=== PATIENT | female | born 1945 | race Caucasian/White ===

== ENCOUNTER 2024-02-10 07:57 | Outpatient (OUT) | payer MEDICARE, SELFPAY ==
--- NOTE | 2024-02-10 08:35 | XR_ITS ---
The [address] [address] Patient Name: JIM MURPHY MRN: [id number] date: 1945 Sex: F Assigned Patient Location: LAB Current Patient Location: LAB Accession/Order Number: [id number] Exam Date: 02/10/2024 08:30 Report Date: 02/10/2024 08:55 At the request of: ALEJANDRO QUEZADA Procedure: XR shoulder RT min 2V PROCEDURE: XR shoulder RT min 2V COMPARISON: None. HISTORY: Chronic Right Shoulder Pain M25.11 FINDINGS: BONES:No acute fracture or dislocation. Mild glenohumeral and acromioclavicular joint osteoarthropathy with marginal osteophyte formation. 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 No visible soft tissue swelling. EFFUSION:None visible. OTHER: Negative. XR/XR shoulder RT min 2V IMPRESSION: Mild glenohumeral and acromioclavicular joint osteoarthritis Electronically authenticated by: PURA ARTEAGA Date: 02/10/2024 08:55
[2024-02-10 08:49] LABS: Basophils Absolute Auto 0.1 10^3/uL (0.0-0.1); Basophils Percent Auto 1.4 % (0.2-2.0); Eosinophils Absolute Auto 0.2 10^3/uL (0.0-0.7); Eosinophils Percent Auto 3.4 % (0.9-7.0); Hematocrit 36.1 % (36.0-48.0); Immature Granulocytes Abs Auto 0.01 10^3/uL (0.00-0.03); Immature Granulocytes Pct Auto 0.2 % (0.0-0.5); Lymphocytes Absolute Auto 1.5 10^3/uL (1.2-3.8); Lymphocytes Percent Auto 22.7 % (20.5-60.0); Mean Corpuscular HGB Conc 30.5 g/dL (29.9-35.2); Mean Corpuscular Hemoglobin 26.3 pg (26.7-34.0); Mean Corpuscular Volume 86.4 fL (81.0-99.0); Mean Platelet Volume 10.6 fL (9.5-13.5); Monocytes Absolute Auto 0.5 10^3/uL (0.3-0.8); Monocytes Percent Auto 7.2 % (1.7-12.0); Neutrophils Absolute Auto 4.3 10^3/uL (1.4-6.5); Neutrophils Percent Auto 65.1 % (43.0-75.0); Platelet Count 275 10^3/uL (150-450); Red Blood Count 4.18 10^6/uL (4.20-5.40); Red Cell Distribution Width 14.1 % (11.0-15.0); White Blood Count 6.6 10^3/uL (4.0-11.0)
[2024-02-10 08:50] LABS: Bilirubin Urine NEGATIVE (NEGATIVE); Blood Urine NEGATIVE (NEGATIVE); Clarity Urine CLEAR (CLEAR); Color Urine YELLOW (YELLOW); Glucose Urine UA NEGATIVE (NEGATIVE); Ketones Urine NEGATIVE (NEGATIVE); Leukocyte Esterase Urine NEGATIVE (NEGATIVE); Nitrite Urine NEGATIVE (NEGATIVE); Protein Urine NEGATIVE (NEG/TRACE); Specific Gravity Urine >=1.030 (1.005-1.025); pH Urine 5.5 (5.0-9.0)
[2024-02-10 08:55] LABS: Creatinine Urine Random 290.88 mg/dL (20.00-300.00); Microalbum Creatinine Ratio Ur 5.1 mg/g (0.0-29.9); Microalbumin Urine Random 1.5 mg/dL (<=30.0)
[2024-02-10 08:58] LABS: Alanine Aminotransferase 23 U/L (14-59); Albumin Globulin Ratio 0.7; Alkaline Phosphatase 120 U/L (46-116); Anion Gap 8.8; Aspartate Amino Transferase 16 U/L (15-37); BUN Creatinine Ratio 18.6; Bilirubin Total 0.4 mg/dL (0.2-1.0); Calcium 8.9 mg/dL (8.5-10.1); Carbon Dioxide 30.2 mmol/L (21.0-32.0); Chloride 105 mmol/L (98-107); Estimated GFR (African America >60 (>=60); Estimated GFR (Non-African Ame 56 (>=60); Globulin 4.1 g/dL; Glucose 106 mg/dL (74-106); Sodium 140 mmol/L (136-145); Total Protein 7.1 g/dL (6.4-8.2)
[2024-02-10 09:17] LABS: Urine Microscopic Indicated NO
== END 2024-02-10 07:58 | disposition home or self-care (01) ==
LOC: LAB 08:02
PROVIDERS: PCP Nurse Practitioner; Visit Provider Nurse Practitioner
DX: I42.9 Cardiomyopathy, unspecified (principal); I10 Essential (primary) hypertension; M25.511 Pain in right shoulder; G89.29 Other chronic pain
CPT/HCPCS: 36415; 73030; 80053; 81003; 82043; 82570; 85025

== ENCOUNTER 2024-03-22 09:23 | Outpatient (OUT) | payer MEDICARE, SELFPAY ==
--- OUTSIDE RECORDS SUMMARY | 2024-03-22 09:31 | XMS_ITS | CCD ---
Author Organization [facility] Inform ion Partnership [facility] Care Team Providers Care Hide Sorter Name Role Phone PHYSICIAN, DEFAULT Admitting Unavailable PHYSICIAN, DEFAULT Attending Unavailable ANNA, SILVIA Primary Care Unavailable Teena Ramos Unavailable HARDY FERNANDEZ Consulting Unavailable HARDY FERNANDEZ Admitting Unavailable ANNA, DR VEGA Primary Care Unavailable HARDY FERNANDEZ Attending Unavailable HARDY FERNANDEZ Admitting Unavailable ANNA, DR VEGA Primary Care Unavailable HARDY FERNANDEZ Attending Unavailable HARDY FERNANDEZ Consulting Unavailable TATA GOODMAN Referring Unavailable TATA GOODMAN Attending Unavailable TATA GOODMAN Referring Unavailable HARDY FERNANDEZ Attending Unavailable ALEJANDRO QUEZADA Attending Unavailable Medications Current Medications Medication Drug Class(es) Dates Sig (Normalized) Sig (Original) Aspirin (1 source) Platelet Aggregation Inhibitor, Nonsteroidal Anti-inflammatory Drug Aspirin 81 Active atorvastatin (1 source) HMG-CoA Reductase Inhibitor Atorvastatin Calcium Active Lisinopril (1 source) Angiotensin Converting Enzyme Inhibitor Lisinopril Active Metoprolol (1 source) beta-Adrenergic Elma Metoprol ol Succinate Active Spironolactone (1 source) Aldosterone Antagonist Spironola ctone Active Problems Active Problems Problem Classification Problem Date Documented Date Episodic/Chronic Cardiac dysrhythmias (2 sources) Supraventricular tachycardia; Translations: [Supraventricular tachycardia] Onset: 02-24-2023 Chronic Conduction disorders (4 sources) Presence of automatic (implantable) cardiac defibrillator; Translations: [Encounter for adjustment and management of automatic implantable cardiac defibrillator] Onset: 01-13-2023 Chronic Congestive heart failure; nonhypertensive (2 sources) Chronic systolic (congestive) heart failure; Translations: [Chronic systolic (congestive) heart failure] Onset: 05-30-2022 Chronic Coronary atherosclerosis and other heart disease (6 sources) Atherosclerotic heart disease of [place] coronary artery without angina pectoris; Translations: [ASHD TANACROSS CA W/O ANGINA PECTORIS] Onset: 02-24-2023 Chronic Bessie-; endo-; and myocarditis; cardiomyopathy (except that caused by tuberculosis or sexually transmitted disease) (2 sources) Dilated cardiomyopathy; Translations: [Dilated cardiomyopathy] Onset: 02-24-2023 Chronic Unclassified (3 sources) OTHER VENTRICULAR TACHYCARDIA; Translations: [OTHER VENTRICULAR TACHYCARDIA] Onset: 03-07-2023 Unclassified (1 source) Other ventricular tachycardia; Translations: [Other ventricular tachycardia] Onset: 02-24-2023 Past or Other Problems Problem Classification Problem Date Documented Da te Episodic/Chronic Immunizations and screening for infectious disease (1 source) Contact with and (suspected) exposure to other viral communicable diseases Onset: 10-19-2021 Resolved: 10-19-2021 Episodic Unclassified (2 sources) OTHER VENTRICULAR TACHYCARDIA; Translations: [OTHER VENTRICULAR TACHYCARDIA] Onset: 02-24-2023 Results Test Name Value Interpretation Reference Range Facility Office Visiton 11-18-2023 Follow-up visit [id number] AlfredoChung quinnphilipkade Shahla 1945 F Date Provider Department Center 11/18/2023 TATA DE LA PAZ [facility] Family History Problem Relation Age of Onset Coronary artery disease Other Asthma Other Family Status - Relation Status Age at Other Level of Service:05085 [place] OFFICE/OUTPATIENT NEW MODERATE MDM 45 MINUTES Normal [facility] CBC AUTO DIFFon 03-06-2023 BASO # 0.1 103/ul Normal 0.0-0.1 [facility] Comment on above: Performed By: #### C BC #### [facility] [address] [place] [address] Dr. Kym Chaudhry Basophils/100 WBC (Bld) 0.8 % Normal 0.2-2.0 [facility] Comment on above: Performed By: #### C BC #### [facility] [address] [place] [address] Dr. Kym Chaudhry EO # 0.3 103/ul Normal 0.0-0.7 [facility] Comment on above: Performed By: #### C BC #### [facility] [address] [place] [address] Dr. Kym Chaudhry Eosinophils/100 WBC (Bld) 4.0 % Normal 0.9-7.0 [facility] Comment on above: Performed By: #### C BC #### [facility] [address] [place] [address] Dr. Kym Chaudhry Erythrocyte distribution width (RBC) [Ratio] 14.5 % Normal 11.0-15.0 [facility] Comment on above: Performed By: #### C BC #### [facility] [address] [place] [address] Dr. Kym Chaudhry Hematocrit (Bld) [Volume fraction] 35.3 % Critically low 36.0-48.0 [facility] Comment on above: Performed By: #### C BC #### [facility] [address] [place] [address] Dr. Kym Chaudhry Hemoglobin (Bld) [Mass/Vol] 11.0 g/dL Critically low 12.0-16.0 [facility] Comment on above: Performed By: #### C BC #### [facility] [address] [place] [address] Dr. Kym Chaudhry IG # 0.02 10e3/ul Normal 0.00-0.03 [facility] Comment on above: Performed By: #### C BC #### [facility] [address] [place] [address] Dr. Kym Chaudhry IG % 0.3 % Normal 0.0-0.5 [facility] Comment on above: Performed By: #### C BC #### [facility] [address] [place] [address] Dr. Kym Chaudhry LYMPH # 1.9 103/ul Normal 1.2-3.8 [facility] Comment on above: Performed By: #### C BC #### [facility] [address] [place] [address] Dr. Kym Chaudhry Lymphocytes/100 WBC (Bld) 26.7 % Normal 20.5-60.0 [facility] Comment on above: Performed By: #### C BC #### [facility] [address] [place] [address] Dr. Kym Chaudhry MANUAL DIFF REQ NO Normal [facility] Comment on above: Performed By: #### C BC #### [facility] [address] [place] [address] Dr. Kym Chaudhry MCH (RBC) [Entitic mass] 25.8 pg Critically low 26.7-34.0 [facility] Comment on above: Performed By: #### C BC #### [facility] [address] [place] [address] Dr. Kym Chaudhry MCHC (RBC) [Mass/Vol] 31.2 g/dL Normal 29.9-35.2 [facility] Comment on above: Performed By: #### C BC #### [facility] [address] [place] [address] Dr. Kym Chaudhry MCV (RBC) [Entitic vol] 82.7 fL Normal 81.0-99.0 [facility] Comment on above: Performed By: #### C BC #### [facility] [address] [place] [address] Dr. Kym Chaudhry MONO # 0.5 103/ul Normal 0.3-0.8 [facility] Comment on above: Performed By: #### C BC #### [facility] [address] [place] [address] Dr. Kym Chaudhry Monocytes/100 WBC (Bld) 6.7 % Normal 1.7-12.0 [facility] Comment on above: Performed By: #### C BC #### [facility] [address] [place] [address] Dr. Kym Chaudhry NEUT # 4.5 103/ul Normal 1.4-6.5 [facility] Comment on above: Performed By: #### C BC #### [facility] [address] [place] [address] Dr. Kym Chaudhry Neutrophils/100 WBC (Bld) 61.5 % Normal 43.0-75.0 [facility] Comment on above: Performed By: #### C BC #### [facility] [address] [address] [address] Kym Chaudhry Platelet mean volume (Bld) [Entitic vol] 9.9 fL Normal 9.5-13.5 [facility] Comment on above: Performed By: #### C BC #### [facility] [address] [address] [address] Kym Chaudhry PLT 237 103/ul Normal 150-450 [facility] Comment on above: Performed By: #### C BC #### [facility] [address] [address] [address] Kym Chaudhry RBC 4.27 106/ul Normal 4.20-5.40 [facility] Comment on above: Performed By: #### C BC #### [facility] [address] [address] [address] Kym Chaudhry WBC 7.3 103/ul Normal 4.0-11.0 [facility] Comment on above: Performed By: #### C BC #### [facility] [address] [address] [address] Kym Chaudhry ECHOCARDIO M/2D COMPLETEon 0 03-06-2023 ECHOCARDIO M/2D COMPLETE Patient: JIM LANCE Exam Date: 03/06/2023 : 1945 Gender:F Ordering : DR HARDY FERNANDEZ M.D. Admission #: [id number] Family : Order #: [id number] CLICK HERE TO VIEW EXAM ECHOCARDIOGRAM REPORT PROCEDURE: CARDIO PULMONARY ECHOCARDIO M/2D COMP INDICATIONS: NSVT COMPARISON: None. DESCRIPTION: COMPLETE ECHOCARDIOGRAM Real-time transthoracic echocardiography with 2D, M-mode, spectral and color flow Doppler performed. QUALITY: Technical quality was adequate. LEFT VENTRICLE: Normal chamber size. Moderate concentric left ventricular hypertrophy. LV EF: Global left ventricular systolic function is normal. Visual estimation of left ventricular ejection fraction is 55-60% DIASTOLIC: Grade I diastolic dysfunction. ATRIAL SEPTUM: Inadequately seen. LEFT ATRIUM: Moderate dilatation. RIGHT ATRIUM: Mild dilatation. RIGHT VENTRICLE: Normal chamber size. Normal right ventricular systolic function. Pacer wire present. TRICUSPID VALVE: Normal mobility and thickness. Trivial regurgitation. Mild pulmonary hypertension. RVSP 35 mmHg MITRAL VALVE: Normal mobility and thickness. No evidence of mitral valve stenosis. Mild mitral annular calcification. Trivial mitral regurgitation. AORTIC VALVE: Normal trileaflet appearance. Mildly calcified aortic valve. Normal leaflet mobility. No evidence of aortic valve stenosis. No aortic regurgitation. AORTIC ROOT: Normal diameter and appearance. PULMONIC VALVE: Normal thickness and mobility. No stenosis. No regurgitation. PERICARDIUM: Anterior free space; trivial effusion versus fat pad. IVC: Collapses with inspirations. Normal size. CONCLUSION: 1. Global left ventricular systolic function is normal; visually estimated ejection fraction is 55 to 60%. No significant wall motion abnormalities. 2. Moderately increased left ventricular wall thickness. 3. Grade 1 diastolic dysfunction. 4. Biatrial enlargement. 5. Right ventricle is normal in size and systolic function. 6. Mildly elevated right-sided pressures; RVSP 35 mmHg. 7. No significant valvular abnormalities. 8. Anterior free space; trivial effusion versus fat pad. Adult Echocardiography Procedure Report Left Ventricle Left Atrium LA Volume Index (2D A2C): 89.13 ml, 89.13 ml Mitral Valve Right Ventricle Aorta Aortic Valve AoV Area (Peak Mic): 2.50 cm2, 2.22 cm2, 2.85 cm2 AoV Area (VTI): 3.04 cm2, 2.63 cm2, 3.53 cm2 Tricuspid Valve Pulmonic Valve Peak Velocity: 0.94 m/s, 0.97 m/s Peak Gradient: 3.52 mm[Hg], 3.74 mm[Hg] Right Atrium Dictated by: Michoacano Smalls M.D. on 03/09/2023 at 15:18 Approved by: Michoacano Smalls M.D. on 03/09/2023 at 15:21 Normal [facility] LIPID PROFILEon 03-06-2023 CHOL-HDL RATIO NORM SEE BELOW Normal [facility] Comment on above: Result Comment: 3.3 - 4.4 LOW RISK 4.4 - 7.1 AVERAGE RISK 7.1 - 11.0 MODERATE RISK >11.0 HIGH RISK Performed By: #### C MP, LIPID #### [facility] [address] [place] [address] Dr. Kym Chaudhry Cholesterol [Mass/Vol] 145 mg/dL Normal <=200 [facility] Comment on above: Performed By: #### C MP, LIPID #### [facility] [address] [address] [address] Kym Chaudhry Cholesterol in HDL [Mass/Vol] 46 mg/dL Normal 40-60 [facility] Comment on above: Performed By: #### C MP, LIPID #### [facility] [address] [address] [address] Kym Chaudhry Cholesterol in LDL [Mass/Vol] 73.8 mg/dL Normal [facility] Comment on above: Performed By: #### C MP, LIPID #### [facility] [address] [address] [address] Kym Chaudhry Cholesterol.total /Cholesterol in HDL [Mass ratio] 3.2 {ratio} Normal [facility] Comment on above: Performed By: #### C MP, LIPID #### [facility] [address] [address] [address] Kym Chaudhry HDL NORMAL > or = 60 mg/dl - LO W CARDIOVASCULAR RISK <40 mg/dl - HIGH CARDIOVASCULAR RISK Normal [facility] Comment on above: Performed By: #### C MP, LIPID #### [facility] [address] [place] [address] Dr. Kym Chaudhry LDL CALC NORMAL SEE BELOW Normal [facility] Comment on above: Result Comment: <100 mg/dl OPTIMAL 100 - 129 mg/dl NEAR OR ABOVE OPTIMAL 130 - 159 mg/dl BORDERLINE HIGH 160 - 189 mg/dl HIGH >190 mg/dl VERY HIGH Performed By: #### C MP, LIPID #### [facility] [address] [address] [address] Kym Chaudhry Triglyceride [Mass/Vol] 126 mg/dL Normal <=150 [facility] Comment on above: Performed By: #### C MP, LIPID #### [facility] [address] [address] [address] Kym Chaudhry VLDL CALC 25.2 mg/dL Normal [facility] Comment on above: Performed By: #### C MP, LIPID #### [facility] [address] [address] [address] Kym Chaudhry PROF 14(COMP METB)on 05-25-2 023 Albumin [Mass/Vol] 3.1 g/dL Critically low 3.4-5.0 [facility] Comment on above: Performed By: #### C MP, LIPID #### [facility] [address] [place] [address] Dr. Kym Chaudhry Albumin/Globulin [Mass ratio] 0.7 {ratio} Normal [facility] Comment on above: Performed By: #### C MP, LIPID #### [facility] [address] [address] [address] Kym Chaudhry ALP [Catalytic activity/Vol] 125 U/L Critically high 46-116 [facility] Comment on above: Performed By: #### C MP, LIPID #### [facility] [address] [place] [address] Dr. Kym Chaudhry ALT [Catalytic activity/Vol] 24 U/L Normal 14-59 [facility] Comment on above: Performed By: #### C MP, LIPID #### [facility] [address] [place] [address] Dr. Kym Chaudhry Anion gap [Moles/Vol] 11.6 mmol/L Normal [facility] Comment on above: Performed By: #### C MP, LIPID #### [facility] [address] [place] [address] Dr. Kym Chaudhry AST [Catalytic activity/Vol] 17 U/L Normal 15-37 [facility] Comment on above: Performed By: #### C MP, LIPID #### [facility] [address] [place] [address] Dr. Kym Chaudhry Bilirubin [Mass/Vol] 0.5 mg/dL Normal 0.2-1.0 [facility] Comment on above: Performed By: #### C MP, LIPID #### [facility] [address] [place] [address] Dr. Kym Chaudhry Calcium [Mass/Vol] 8.5 mg/dL Normal 8.5-10.1 [facility] Comment on above: Performed By: #### C MP, LIPID #### [facility] [address] [place] [address] Dr. Kmy Chaudhry Chloride [Moles/Vol] 109 mmol/L Critically high 98-107 [facility] Comment on above: Performed By: #### C MP, LIPID #### [facility] [address] [place] [address] Dr. Kym Chaudhry CO2 [Moles/Vol] 27.5 mmol/L Normal 21.0-32.0 [facility] Comment on above: Performed By: #### C MP, LIPID #### [facility] [address] [place] [address] Dr. Kym Chaudhry Creatinine [Mass/Vol] 0.91 mg/dL Normal 0.55-1.02 [facility] Comment on above: Performed By: #### C MP, LIPID #### [facility] [address] [place] [address] Dr. Kym Chaudhry EGFR-AF CHINESE >60 Normal >=60 [facility] Comment on above: Performed By: #### C MP, LIPID #### [facility] [address] [place] [address] Dr. Kym Chaudhry EGFR-NON AF CHINESE 60 mL/min/1.73m2 Normal >=60 [facility] Comment on above: Performed By: #### C MP, LIPID #### [facility] [address] [place] [address] Dr. Kym Chaudhry Globulin (S) [Mass/Vol] 4.2 g/dL Normal [facility] Comment on above: Performed By: #### C MP, LIPID #### [facility] [address] [place] [address] Dr. Kym Chaudhry Glucose [Mass/Vol] 99 mg/dL Normal 74-106 [facility] Comment on above: Performed By: #### C MP, LIPID #### [facility] [address] [place] [address] Dr. Kym Chaudhry Potassium [Moles/Vol] 4.1 mmol/L Normal 3.5-5.1 [facility] Comment on above: Performed By: #### C MP, LIPID #### [facility] [address] [place] [address] Dr. Kym Chaudhry Protein [Mass/Vol] 7.3 g/dL Normal 6.4-8.2 [facility] Comment on above: Performed By: #### C MP, LIPID #### [facility] [address] [address] [address] Kym Chaudhry Sodium [Moles/Vol] 144 mmol/L Normal 136-145 [facility] Comment on above: Performed By: #### C MP, LIPID #### [facility] [address] [address] [address] Kym Chaudhry Urea nitrogen [Mass/Vol] 19.0 mg/dL Critically high 7.0-18.0 [facility] Comment on above: Performed By: #### C MP, LIPID #### [facility] [address] [place] [address] Dr. Kym Chaudhry Urea nitrogen/Creatini ne [Mass ratio] 20.9 mg/mg Normal [facility] Comment on above: Performed By: #### C MP, LIPID #### [facility] [address] [place] [address] Dr. Kym Chaudhry Office Visiton 02-24-2023 Follow-up visit [id number] NatalioChungodalys Gale 1945 F Date Provider Department Center 02/24/2023 HARDY VELIZ [facility] Family History Problem Relation Age of Onset Coronary artery disease Other Asthma Other Family Status - Relation Status Age at Other Level of Service:43732 [place] OFFICE/OUTPATIENT ESTABLISHED MOD MDM 30-39 MIN Normal [facility] COVID Quick Testingon 2021 Result Negative [facility] Only Other Vital Signs Date Time Vital Sign Value Performing Clinician Facility 10-19-2021 17:00-0500 Body height 162.56 cm Teena Ramos Other [facility] Other 10-19-2021 17:00-0500 Body mass index (BMI) [Ratio] 30.04 kg/m2 Teena Ramos Other [facility] Other 01-07-2022 17:00-0500 Body temperature 97.3 [degF] Teena Ginty Other [facility] Other 10-19-2021 17:00-0500 Body weight 79.38 kg Teena Ginty Other [facility] Other 10-19-2021 17:00-0500 Respiratory rate 18 /min Teena Ginty Other [facility] Other 10-19-2021 17:00-0500 SaO2% (BldA) [Mass fraction] 98 % Teena Ginty Other [facility] Other Encounters Encounter Date Encounter Type Care Provider Facility Start: 02-03-2024 End: 02-03-2024 ambulatory ALEJANDRO QUEZADA Not Available Start: 11-18-2023 End: 11-18-2023 ambulatory [facility] Start: 07-01-2023 End: 07-01-2023 ambulatory [facility] Start: 03-06-2023 End: 03-07-2023 ambulatory [facility] Facility: Start: 03-06-2023 End: 03-07-2023 ambulatory [facility] Facility: Start: 02-24-2023 End: 02-24-[address] [facility] Start: 01-13-2023 End: 01-13-2023 ambulatory [facility] Start: 10-19-2021 End: 10-19-2021 ambulatory Teena Ginty Other [facility] Other Start: 10-19-2021 Office outpatient visit 15 minutes Teena Ginty [facility] Start: 12-11-2018 End: 12-12-2018 Patient encounter procedure DEFAULT PHYSICIAN Facility:[facility] Payers Date Payer Category Payer Medicare [id number] 2. [id number] 1945 Unknown [id number] 1945 Unknown [id number] 1945 Unknown [id number] [id number] 1945 Unknown [id number] [id number] Unknown Social History Date Type Detail Facility Sex Assigned At Adv[facility] Only Other Progress note 11-18-2023 Note Date & Type Note Facility 11-18-2023 Note Patient here for fol low up [place] on Jun 2023 device interrogation. Denies chest pain, SOB, palpitations, and lightheadedness/syncope. C/o weight gain and worsening LE edema. No recent labs/imaging. Review of Systems HENT: Positive for hearing loss. Cardiovascular: Positive for leg swelling (worsening). Musculoskeletal: Positive for joint pain and myalgias. All other systems reviewed and are negative. [place] Electrophysiology Consult Note Reason for visit: ICD in situ HPI: Jim Lance is a 78 y.o. 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 it was initially implanted at [facility] and subsequently underwent a generator change with Dr. Tejada. Cardiac catheterization in 2007 showed single-vessel CAD of the diagonal branch. At that time EF was 15%. Her left ventricular systolic function improved over the time by echocardiography with study in 03/04 showing normal EF. Prior interrogation of ICD showed episodes of nonsustained ventricular tachycardia as per Cards but recent ones on 2022 reveals SVT. No recent device checks. She is on lisinopril 20 once daily as well as Toprol-XL 150 once daily. She is careful about watching her calories and does her chores around the house. patient stated that she experiences lightheadedness and near syncope on July 05, 2023 but only after the device check was done. On 06/25/2021 she was undergoing interrogation of ICD and this showed evidence of 4 NSVT episodes, the longest was 3 seconds at a rate of 185 bpm happening on May 18, 2021. She also was noted to have several SVTs at rates of 150-160 bpm. At that time a stress test showed no evidence of ischemia. She was managed medically. She denies chest pain. She has shortness of breath on exertion. She has mild occasional lower extremity edema. No palpitations. Device check: 07/01/23 04/20/23 Episode appears to be SVT PMH: Past Medical History: Diagnosis Date Abnormal ECG Arrhythmia CHF (congestive heart failure) ([facility]) Coronary artery disease Hypertension Nonischemic congestive cardiomyopathy ([facility]) NSVT (nonsustained ventricular tachycardia) ([facility]) Primary cardiomyopathy ([facility]) SVT (supraventricular tachycardia) ([facility]) PSH: Past Surgical History: Procedure Laterality Date APPENDECTOMY CARDIAC CATHETERIZATION 10/16/2018 CARDIAC CATHETERIZATION 07/04/2011 INSERT / REPLACE / REMOVE PACEMAKER SH: Social Determinants of Health Tobacco Use: Low Risk (02/24/2023) Patient History Smoking Tobacco Use: Never Smokeless Tobacco Use: Never Passive Exposure: Not on file Alcohol Use: Not on file Financial Resource Strain: Not on file Food Insecurity: Not on file Transportation Needs: Not on file Physical Activity: Not on file Stress: Not on file Social Connections: Not on file Intimate Partner Violence: Unknown (11/18/2023) [place] Safety & Environment Fear of Current or Ex-Partner: Not on file Emotionally Abused: Not on file Physically Abused: Not on file Sexually Abused: Not on file Physically or Sexually Abused: Not on file Depression: Not on file Housing Stability: Not on file Utilities: Not on file Allergies: No Known Allergies Weight: 83.9kg Visit Vitals BP 145/75 (BP Location: Left arm, Patient Position: Sitting) Pulse 69 Ht 1.626 m (5' 4 ) Wt 83.9 kg (185 lb) SpO2 95% BMI 31.76 kg/m??? Smoking Status Never BSA 1.95 m??? Meds: Current Outpatient Medications on File Prior to Visit Medication Sig Dispense Refill aspirin 81 mg EC tablet Take 1 tablet every day by oral route. atorvastatin (Lipitor) 40 mg tablet TAKE 1 TABLET AT BEDTIME 90 tablet 3 lisinopril 20 mg tablet TAKE 1 TABLET IN THE MORNING 90 tablet 3 metoprolol succinate XL (Toprol-XL) 100 mg 24 hr tablet TAKE 1 TABLET IN THE MORNING . DO NOT CRUSH OR CHEW 90 tablet 3 metoprolol succinate XL (Toprol-XL) 50 mg 24 hr tablet Take 1 tablet (50 mg) by mouth in the morning. Take in addition to the 100 mg tablet for a total of 150 mg daily. 90 tablet 3 No current facility-administered medications on file prior to visit. ROS: Cardio Basic Cardiovascular Symptoms: no lightheadedness, no leg edema, no syncope, no orthopnea, no PND, no claudication, Constitutional Constitutional: no fever, no night sweats, no significant weight gain, no significant weight loss, no exercise intolerance Eyes Eyes: no dry eyes, no irritation, no vision change ENMT Ears: no difficulty hearing, no ear pain Nose: no frequent nosebleeds, Mouth/Throat: no sore throat, no bleeding gums, no snoring, no dry mouth, no mouth ulcers, no oral abnormalities, no teeth problems Respiratory Respiratory: no cough, no wheezing, no coughing up blood, no sleep apnea Musculoskeletal Musculoskeletal: no muscle aches, no muscle weakness, joint pain+, no back pain, no swelling in the extremities Integu (more content not included)... [facility] Progress note 02-24-2023 Note Date & Type Note Facility 02-24-2023 Note [place] Cardiology - [facility] Augustine Lance is a 77 y.o. year old female patient being seen for 1 year follow up CAD, NICM, CHF, and hypertension. Device interrogated last month in the office. Denies chest pain, SOB, and palpitations. LE edema is intermittent. C/o worsening joint pain and she wants to know if it could be related to one of her meds. Hasn't had lab work since December 2021. Patient Active Problem List Diagnosis Congestive heart failure (CMS/HCC) Essential hypertension Hypertensive disorder Implantable cardioverter-defibrillator (ICD) in situ Primary cardiomyopathy (CMS/HCC) Family History Problem Relation Name Age of Onset Coronary artery disease Other Asthma Other Social History Tobacco Use Smoking status: Never Smokeless tobacco: Never Substance Use Topics Alcohol use: Not Currently Drug use: Never DARA Calderón is seen in follow-up. 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 Cardiac catheterization in 2007 showed single-vessel CAD of the diagonal branch. At that time EF was 15%. Her left ventricular systolic function improved over the time by echocardiography. Additional history includes hypertension on treatment. Prior interrogation of ICD showed episodes of nonsustained ventricular tachycardia. On 06/25/2021 she was undergoing interrogation of ICD and this showed evidence of 4 NSVT episodes, the longest was 3 seconds at a rate of 185 bpm happening on May 18, 2021. She also was noted to have several SVTs at rates of 150-160 bpm. At that time a stress test showed no evidence of ischemia. She was managed medically. She denies chest pain. She has shortness of breath on exertion. She has mild occasional lower extremity edema. No palpitations. Review of Systems Cardiovascular: Positive for leg swelling (intermittent). Musculoskeletal: Positive for joint pain. All other systems reviewed and are negative. Objective Visit Vitals BP 153/72 (BP Location: Left arm, Patient Position: Sitting) Pulse 78 Ht 1.626 m (5' 4 ) Wt 81.6 kg (180 lb) SpO2 95% BMI 30.90 kg/m??? Smoking Status Never BSA 1.92 m??? Physical Exam Constitutional: Appearance: She is well-developed. She is obese. She is not ill-appearing. HENT: Head: Normocephalic and atraumatic. Nose: Nose normal. Eyes: General: No scleral icterus. Pupils: Pupils are equal, round, and reactive to light. Neck: Thyroid: No thyromegaly. Vascular: No JVD. Cardiovascular: Rate and Rhythm: Normal rate and regular rhythm. Pulses: Radial pulses are 2+ on the right side and 2+ on the left side. Heart sounds: Normal heart sounds. No murmur heard. No friction rub. No gallop. Pulmonary: Effort: Pulmonary effort is normal. No respiratory distress. Breath sounds: Normal breath sounds. No wheezing or rales. Chest: Chest wall: No tenderness. Abdominal: General: Bowel sounds are normal. There is no distension. Palpations: Abdomen is soft. Tenderness: There is no abdominal tenderness. Musculoskeletal: General: No swelling. Cervical back: Neck supple. Skin: General: Skin is warm and dry. Neurological: General: No focal deficit present. Mental Status: She is alert and oriented to person, place, and time. Psychiatric: Mood and Affect: Mood normal. Behavior: Behavior is cooperative. Judgment: Judgment normal. Allergies No Known Allergies Medications Current Outpatient Medications: aspirin 81 mg EC tablet, Take 1 tablet every day by oral route., Disp: , Rfl: atorvastatin (Lipitor) 40 mg tablet, Take 1 tablet (40 mg) by mouth at bedtime., Disp: 90 tablet, Rfl: 3 lisinopril 20 mg tablet, Take 1 tablet (20 mg) by mouth in the morning., Disp: 90 tablet, Rfl: 3 metoprolol succinate XL (Toprol-XL) 100 mg 24 hr tablet, Take 1 tablet (100 mg) by mouth in the morning. Do not crush or chew., Disp: 90 tablet, Rfl: 3 metoprolol succinate XL (Toprol-XL) 50 mg 24 hr tablet, Take 1 tablet (50 mg) by mouth in the morning. Take in addition to the 100 mg tablet for a total of 150 mg daily., Disp: 90 tablet, Rfl: 3 Recent Labs No visits with results within 6 Month(s) from this visit. Latest known visit with results is: No results found for any previous visit. Blood testing 01/02/2022: Hemoglobin 11.4, platelets 231, potassium 4.4, BUN 17, creatinine 1.0, EGFR 54, LFTs normal, cholesterol 173, HDL 46, triglycerides 161, LDL 95. Blood testing 11/08/2020: BMP w/n normal. LDL 07/2020: 94. Imaging and other tests Echocardiogram 11/08/2020: Normal ventricular systolic function, mild tricuspid regurgitation, normal right-sided pressures. NM stress test 07/09/21: negative for ischemia, fixed transmural defect in the apex ICD device check 01/13/2023: 6 nonsustained VT episodes. No intervention needed. Echocardiogram 10/14/2018: 1. Severely reduced left ventricular systol (more content not included)... [facility] Evaluation note 10-19-2021 Note Date & Type Note Facility 10-19-2021 Evaluation note Encounter Date Diagnosis Assessment Notes Oct, Contact with and (suspected) exposure to other viral communicable diseases (ICD-10 - Z20.828) Advised patient that COVID antigen test was negative today. Declines PCR testing. Advised patient that there are no signs of acute lung process today on exam including Bronchitis, Pneumonia, ect. Advised patient that she could have had COVID and could be feeling some residul effects from the infection. Encouraged supportive care as directed, increase fluids and rest, Tylenol/Motrin as directed, OTC cough/cold remedies as directed on packaging, cool mist humidifier, throat lozenges. Discussed infection control practices such as good hand washing and mask wearing. Patient to follow up with PCP if sx persist or worsen despite treatment. Immediate eval for SOB, difficulty, chest pain, fevers that do not break with antipyretic or any other concerning symptoms as reviewed on patient education handout. Patient verbalizes understanding and is agreeable to treatment plan. Patient left in stable condition Oct, Other Additional time spent conducting pre-visit phone call, screening for symptoms, instructions on social distancing, application and removal of PPE, and cleaning of examination room, equipment and supplies was preformed. Patient education given for testing methodology and results. Patient care instructions given in writting by [facility] document Advise Only Other History general Narrative - Reported Note Date & Type Note Facility History general Narrative - Reported Type Medical History Congestive heart failure Surgical History appendectomy Surgical History ovarian cyst removal Surgical History pacemaker Surgical History cholecystectomy Advise Only Other Summary Purpose Family History No Family History Records FoundNo Family History Records FoundNo Family History Records FoundNo Family History Records Found Advance Directives No Advanced Directives Records FoundNo Advanced Directives Records FoundNo Advanced Directives Records FoundNo Advanced Directives Records Found Additional Source Comments INFORMATION SOURCE (unrecogn ized section and content) DATE CREATED AUTHOR 12/13/2018 [facility] DATE CREATED AUTHOR AUTHOR'S ORGANIZ ATION 03/21/[address] [facility] DATE CREATED AUTHOR AUTHOR'S ORGANIZ ATION 11/19/2023 [facility] DATE CREATED AUTHOR AUTHOR'S ORGANIZ ATION 02/04/[address] [facility] EPIC REASON FOR VISIT (unrecogniz ed section and content) #29 WHITE ENVISION, COUGH, C ONGESTION, FEVER FOR RECORDS PERTAINING TO PATIENTS WHO ARE OR HAVE BEEN ENROLLED IN A CHEMICAL DEPENDENCY/SUBSTANCEABUSE PROGRAM, SOME INFORMATION MAY BE OMITTED. This clinical summary was aggregated from multiple sources. Caution should be exercised in using it in the provision of clinical care. This summary normalizes information from multiple sources, and as a consequence, information in this document may materially change the coding, format and clinical context of patient data. In addition, data may be omitted in some cases. CLINICAL DECISIONS SHOULD BE BASED ON THE PRIMARY CLINICAL RECORDS. [facility] [employer] [facility] provides no warranty or guarantee of the accuracy or completeness of information in this document.
[2024-03-22 10:23] LABS: Basophils Absolute Auto 0.1 10^3/uL (0.0-0.1); Basophils Percent Auto 1.2 % (0.2-2.0); Eosinophils Absolute Auto 0.2 10^3/uL (0.0-0.7); Hematocrit 36.9 % (36.0-48.0); Hemoglobin 11.7 g/dL (12.0-16.0); Immature Granulocytes Abs Auto 0.02 10^3/uL (0.00-0.03); Immature Granulocytes Pct Auto 0.3 % (0.0-0.5); Lymphocytes Absolute Auto 1.5 10^3/uL (1.2-3.8); Lymphocytes Percent Auto 24.7 % (20.5-60.0); Mean Corpuscular HGB Conc 31.7 g/dL (29.9-35.2); Mean Corpuscular Hemoglobin 26.8 pg (26.7-34.0); Mean Corpuscular Volume 84.4 fL (81.0-99.0); Mean Platelet Volume 10.5 fL (9.5-13.5); Monocytes Absolute Auto 0.4 10^3/uL (0.3-0.8); Monocytes Percent Auto 7.2 % (1.7-12.0); Neutrophils Absolute Auto 3.8 10^3/uL (1.4-6.5); Neutrophils Percent Auto 63.6 % (43.0-75.0); Platelet Count 255 10^3/uL (150-450); Red Blood Count 4.37 10^6/uL (4.20-5.40); Red Cell Distribution Width 14.2 % (11.0-15.0); White Blood Count 5.9 10^3/uL (4.0-11.0)
[2024-03-22 11:20] LABS: Percent Iron Saturation 9.8 %
== END 2024-03-22 09:24 | disposition home or self-care (01) ==
LOC: LAB 09:27
PROVIDERS: PCP Nurse Practitioner; Visit Provider Nurse Practitioner
DX: D64.89 Other specified anemias (principal)
CPT/HCPCS: 36415; 82607; 82728; 83540; 83550; 85025

== ENCOUNTER 2024-03-23 15:26 | Outpatient (REF) | payer MEDICARE, SELFPAY ==
--- OUTSIDE RECORDS SUMMARY | 2024-03-24 16:39 | XMS_ITS | CCD ---
Author Organization [facility] Inform ion Partnership [facility] Care Team Providers Care Parachute Marker Name Role Phone PHYSICIAN, DEFAULT Admitting Unavailable PHYSICIAN, DEFAULT Attending Unavailable ANNA, SILVIA Primary Care Unavailable Teena Ramos Unavailable HARDY FERNANDEZ Consulting Unavailable HARDY FERNANDEZ Admitting Unavailable ANNA, DR VGEA Primary Care Unavailable HARDY FERNANDEZ Attending Unavailable [...] disease (6 sources) Atherosclerotic heart disease of [place] coronary artery without angina pectoris; Translations: [ASHD [place] CA W/O ANGINA PECTORIS] Onset: 02-24-2023 Chronic [...] Range Facility Office Visiton 11-18-2023 Follow-up visit [id number] AlfredoChung quinnphilipkade Shahla 1945 F Date Provider Department Center 11/18/2023 TATA DE LA PAZ [facility] Family History Problem Relation Age of Onset Coronary artery disease Other Asthma Other Family Status - Relation Status Age at Other Level of Service:27659 MS OFFICE/OUTPATIENT NEW MODERATE MDM 45 MINUTES Normal [facility] CBC AUTO DIFFon 03-06-2023 BASO # 0.1 103/ul Normal 0.0-0.1 [facility] Comment on above: Performed By: #### C BC #### [facility] [address] [place] [address] Dr. Kym Chaudhry Basophils/100 WBC (Bld) 0.8 % Normal 0.2-2.0 [facility] Comment on above: Performed By: #### C BC #### [facility] [address] [place] [address] Dr. Kym Chaudhry EO # 0.3 103/ul Normal 0.0-0.7 [facility] Comment on above: Performed By: #### C BC #### [facility] [address] [place] [address] Dr. Kym Chaudhry Eosinophils/100 WBC (Bld) 4.0 % Normal 0.9-7.0 [facility] Comment on above: Performed By: #### C BC #### [facility] [address] [place] [address] Dr. Kym Chaudhry Erythrocyte distribution width (RBC) [Ratio] 14.5 % Normal 11.0-15.0 [facility] Comment on above: Performed By: #### C BC #### [facility] [address] [place] [address] Dr. Kym Chaudhry Hematocrit (Bld) [Volume fraction] 35.3 % Critically low 36.0-48.0 [facility] Comment on above: Performed By: #### C BC #### [facility] [address] [place] [address] Dr. Kym Chaudhry Hemoglobin (Bld) [Mass/Vol] 11.0 g/dL Critically low 12.0-16.0 [facility] Comment on above: Performed By: #### C BC #### [facility] [address] [place] [address] Dr. Kym Chaudhry IG # 0.02 10e3/ul Normal 0.00-0.03 [facility] Comment on above: Performed By: #### C BC #### [facility] [address] [place] [address] Dr. Kym Chaudhry IG % 0.3 % Normal 0.0-0.5 [facility] Comment on above: Performed By: #### C BC #### [facility] [address] [place] [address] Dr. Kym Chaudhry LYMPH # 1.9 103/ul Normal 1.2-3.8 [facility] Comment on above: Performed By: #### C BC #### [facility] [address] [place] [address] Dr. Kym Chaudhry Lymphocytes/100 WBC (Bld) 26.7 % Normal 20.5-60.0 [facility] Comment on above: Performed By: #### C BC #### [facility] [address] [place] [address] Dr. Kym Chaudhry MANUAL DIFF REQ NO Normal [facility] Comment on above: Performed By: #### C BC #### [facility] [address] [place] [address] Dr. Kym Chaudhry MCH (RBC) [Entitic mass] 25.8 pg Critically low 26.7-34.0 [facility] Comment on above: Performed By: #### C BC #### [facility] [address] [place] [address] Dr. Kym Chaudhry MCHC (RBC) [Mass/Vol] 31.2 g/dL Normal 29.9-35.2 [facility] Comment on above: Performed By: #### C BC #### [facility] [address] [place] [address] Dr. Kym Chaudhry MCV (RBC) [Entitic vol] 82.7 fL Normal 81.0-99.0 [facility] Comment on above: Performed By: #### C BC #### [facility] [address] [place] [address] Dr. Kym Chaudhry MONO # 0.5 103/ul Normal 0.3-0.8 [facility] Comment on above: Performed By: #### C BC #### [facility] [address] [place] [address] Dr. Kym Chaudhry Monocytes/100 WBC (Bld) 6.7 % Normal 1.7-12.0 [facility] Comment on above: Performed By: #### C BC #### [facility] [address] [place] [address] Dr. Kym Chaudhry NEUT # 4.5 103/ul Normal 1.4-6.5 [facility] Comment on above: Performed By: #### C BC #### [facility] [address] [place] [address] Dr. Kym Chaudhry Neutrophils/100 WBC (Bld) 61.5 % Normal 43.0-75.0 [facility] Comment on above: Performed By: #### C BC #### [facility] [address] [address] [address] Kym Chaudhry Platelet mean volume (Bld) [Entitic vol] 9.9 fL Normal 9.5-13.5 [facility] Comment on above: Performed By: #### C BC #### [facility] [address] [address] [address] Kym Chaudhry PLT 237 103/ul Normal 150-450 [facility] Comment on above: Performed By: #### C BC #### [facility] [address] [address] [address] Kym Chaudhry RBC 4.27 106/ul Normal 4.20-5.40 [facility] Comment on above: Performed By: #### C BC #### [facility] [address] [address] [address] Kym Chaudhry WBC 7.3 103/ul Normal 4.0-11.0 [facility] Comment on above: Performed By: #### C BC #### [facility] [address] [address] [address] Kym Chaudhry ECHOCARDIO M/2D COMPLETEon 0 03-06-2023 ECHOCARDIO M/2D COMPLETE Patient: JIM LANCE Exam Date: 03/06/2023 : 1945 Gender:F Ordering : DR HARDY FERNANDEZ M.D. Admission #: [id number] Family : Order #: [id number] CLICK HERE TO VIEW EXAM ECHOCARDIOGRAM REPORT [...] Smalls M.D. on 03/09/2023 at 15:21 Normal [facility] LIPID PROFILEon 03-06-2023 CHOL-HDL RATIO NORM SEE BELOW Normal [facility] Comment on above: Result Comment: 3.3 - 4.4 LOW RISK 4.4 - 7.1 AVERAGE RISK 7.1 - 11.0 MODERATE RISK >11.0 HIGH RISK Performed By: #### C MP, LIPID #### [facility] [address] [place] [address] Dr. Kym Chaudhry Cholesterol [Mass/Vol] 145 mg/dL Normal <=200 [facility] Comment on above: Performed By: #### C MP, LIPID #### [facility] [address] [address] [address] Kym Chaudhry Cholesterol in HDL [Mass/Vol] 46 mg/dL Normal 40-60 [facility] Comment on above: Performed By: #### C MP, LIPID #### [facility] [address] [address] [address] Kym Chaudhry Cholesterol in LDL [Mass/Vol] 73.8 mg/dL Normal [facility] Comment on above: Performed By: #### C MP, LIPID #### [facility] [address] [address] [address] Kym Chaudhry Cholesterol.total /Cholesterol in HDL [Mass ratio] 3.2 {ratio} Normal [facility] Comment on above: Performed By: #### C MP, LIPID #### [facility] [address] [address] [address] Kym Chaudhry HDL NORMAL > or = 60 mg/dl - LO W CARDIOVASCULAR RISK <40 mg/dl - HIGH CARDIOVASCULAR RISK Normal [facility] Comment on above: Performed By: #### C MP, LIPID #### [facility] [address] [place] [address] Dr. Kym Chaudhry LDL CALC NORMAL SEE BELOW Normal [facility] Comment on above: Result Comment: <100 mg/dl OPTIMAL 100 - 129 mg/dl NEAR OR ABOVE OPTIMAL 130 - 159 mg/dl BORDERLINE HIGH 160 - 189 mg/dl HIGH >190 mg/dl VERY HIGH Performed By: #### C MP, LIPID #### [facility] [address] [address] [address] Kym Chaudhry Triglyceride [Mass/Vol] 126 mg/dL Normal <=150 [facility] Comment on above: Performed By: #### C MP, LIPID #### [facility] [address] [address] [address] Kym Chaudhry VLDL CALC 25.2 mg/dL Normal [facility] Comment on above: Performed By: #### C MP, LIPID #### [facility] [address] [address] [address] Kym Chaudhry PROF 14(COMP METB)on 05-25-2 023 Albumin [Mass/Vol] 3.1 g/dL Critically low 3.4-5.0 [facility] Comment on above: Performed By: #### C MP, LIPID #### [facility] [address] [place] [address] Dr. Kym Chaudhry Albumin/Globulin [Mass ratio] 0.7 {ratio} Normal [facility] Comment on above: Performed By: #### C MP, LIPID #### [facility] [address] [address] [address] Kym Chaudhry ALP [Catalytic activity/Vol] 125 U/L Critically high 46-116 [facility] Comment on above: Performed By: #### C MP, LIPID #### [facility] [address] [place] [address] Dr. Kym Chaudhry ALT [Catalytic activity/Vol] 24 U/L Normal 14-59 [facility] Comment on above: Performed By: #### C MP, LIPID #### [facility] [address] [place] [address] Dr. Kym Chaudhry Anion gap [Moles/Vol] 11.6 mmol/L Normal [facility] Comment on above: Performed By: #### C MP, LIPID #### [facility] [address] [place] [address] Dr. Kym Chaudhry AST [Catalytic activity/Vol] 17 U/L Normal 15-37 [facility] Comment on above: Performed By: #### C MP, LIPID #### [facility] [address] [place] [address] Dr. Kym Chaudhry Bilirubin [Mass/Vol] 0.5 mg/dL Normal 0.2-1.0 [facility] Comment on above: Performed By: #### C MP, LIPID #### [facility] [address] [place] [address] Dr. Kym Chaudhry Calcium [Mass/Vol] 8.5 mg/dL Normal 8.5-10.1 [facility] Comment on above: Performed By: #### C MP, LIPID #### [facility] [address] [place] [address] Dr. Kym Chaudhry Chloride [Moles/Vol] 109 mmol/L Critically high 98-107 [facility] Comment on above: Performed By: #### C MP, LIPID #### [facility] [address] [place] [address] Dr. Kym Chaudhry CO2 [Moles/Vol] 27.5 mmol/L Normal 21.0-32.0 [facility] Comment on above: Performed By: #### C MP, LIPID #### [facility] [address] [place] [address] Dr. Kym Chaudhry Creatinine [Mass/Vol] 0.91 mg/dL Normal 0.55-1.02 [facility] Comment on above: Performed By: #### C MP, LIPID #### [facility] [address] [place] [address] Dr. Kym Chaudhry EGFR-AF BRUNEIAN >60 Normal >=60 [facility] Comment on above: Performed By: #### C MP, LIPID #### [facility] [address] [place] [address] Dr. Kym Chaudhry EGFR-NON AF BRUNEIAN 60 mL/min/1.73m2 Normal >=60 [facility] Comment on above: Performed By: #### C MP, LIPID #### [facility] [address] [place] [address] Dr. Kym Chaudhry Globulin (S) [Mass/Vol] 4.2 g/dL Normal [facility] Comment on above: Performed By: #### C MP, LIPID #### [facility] [address] [place] [address] Dr. Kym Chaudhry Glucose [Mass/Vol] 99 mg/dL Normal 74-106 [facility] Comment on above: Performed By: #### C MP, LIPID #### [facility] [address] [place] [address] Dr. Kym Chaudhry Potassium [Moles/Vol] 4.1 mmol/L Normal 3.5-5.1 [facility] Comment on above: Performed By: #### C MP, LIPID #### [facility] [address] [place] [address] Dr. Kym Chaudhry Protein [Mass/Vol] 7.3 g/dL Normal 6.4-8.2 [facility] Comment on above: Performed By: #### C MP, LIPID #### [facility] [address] [address] [address] Kym Chaudhry Sodium [Moles/Vol] 144 mmol/L Normal 136-145 [facility] Comment on above: Performed By: #### C MP, LIPID #### [facility] [address] [address] [address] Kym Chaudhry Urea nitrogen [Mass/Vol] 19.0 mg/dL Critically high 7.0-18.0 [facility] Comment on above: Performed By: #### C MP, LIPID #### [facility] [address] [place] [address] Dr. Kym Chaudhry Urea nitrogen/Creatini ne [Mass ratio] 20.9 mg/mg Normal [facility] Comment on above: Performed By: #### C MP, LIPID #### [facility] [address] [place] [address] Dr. Kym Chaudhry Office Visiton 02-24-2023 Follow-up visit [id number] NatalioChungodalys Gale 1945 F Date Provider Department Center 02/24/2023 HARDY VELIZ [facility] Family History Problem Relation Age of Onset Coronary artery disease Other Asthma Other Family Status - Relation Status Age at Other Level of Service:62553 MS OFFICE/OUTPATIENT ESTABLISHED MOD MDM 30-39 MIN Normal [facility] COVID Quick Testingon 2021 Result Negative [facility] Other Vital Signs Date Time Vital Sign Value Performing Clinician Facility 10-19-2021 17:00-0500 Body height 162.56 cm Teena Ramos Other [facility] Other 10-19-2021 17:00-0500 Body mass index (BMI) [Ratio] 30.04 kg/m2 Teena Ramos Other [facility] Other 01-07-2022 17:00-0500 Body temperature 97.3 [degF] Teena Ginty Other [facility] Other 10-19-2021 17:00-0500 Body weight 79.38 kg Teena Ginty Other [facility] Other 10-19-2021 17:00-0500 Respiratory rate 18 /min Teena Ginty Other [facility] Other 10-19-2021 17:00-0500 SaO2% (BldA) [Mass fraction] 98 % Teena Ginty Other [facility] Other Encounters Encounter Date Encounter Type Care Provider Facility Start: 02-03-2024 End: 02-03-2024 ambulatory ALEJANDRO QUEZADA Not Available Start: 11-18-2023 End: 11-18-2023 ambulatory [facility] Start: 07-01-2023 End: 07-01-2023 ambulatory [facility] Start: 03-06-2023 End: 03-07-2023 ambulatory [facility] Facility: Start: 03-06-2023 End: 03-07-2023 ambulatory [facility] Facility: Start: 02-24-2023 End: 02-24-2023 ambulatory [facility] Start: 01-13-2023 End: 01-13-2023 ambulatory [facility] Start: 10-19-2021 End: 10-19-2021 ambulatory Teena Ginty Other [facility] Other Start: 10-19-2021 Office outpatient visit 15 minutes Teena Ginty [facility] Start: 12-11-2018 End: 12-12-2018 Patient encounter procedure DEFAULT PHYSICIAN Facility:[facility] Payers Date Payer Category Payer Medicare [id number] 2. [id number] 1945 Unknown [id number] [id number] 1945 Unknown [id number] [id number] [id number] 1945 Unknown [id number] [id number] [id number] 1945 Unknown [id number] [id number] [id number] Unknown Social History Date Type Detail Facility Sex Assigned At [facility] Other Progress note 11-18-2023 Note Date & [...] All other systems reviewed and are negative. [place] Electrophysiology Consult Note Reason for visit: ICD in situ HPI: Jim Lance is a 78 y.o. 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 it was initially implanted at [facility] and subsequently underwent a generator change with [...] Abnormal ECG Arrhythmia CHF (congestive heart failure) ([facility]) Coronary artery disease Hypertension Nonischemic congestive cardiomyopathy ([facility]) NSVT (nonsustained ventricular tachycardia) ([facility]) Primary cardiomyopathy ([facility]) SVT (supraventricular tachycardia) ([facility]) PSH: Past Surgical History: Procedure Laterality Date [...] on file Intimate Partner Violence: Unknown (11/18/2023) [place] Safety & Environment Fear of Current or [...] the extremities Integu (more content not included)... [facility] Progress note 02-24-2023 Note Date & Type Note Facility 02-24-2023 Note [place] Cardiology - [facility] Augustine Lance is a 77 y.o. [...] left ventricular systol (more content not included)... [facility] Evaluation note 10-19-2021 Note Date & Type [...] instructions given in writting by [facility] document [facility] Other History general Narrative - Reported Note Date & Type Note Facility History general Narrative - Reported Type Medical History Congestive heart failure Surgical History appendectomy Surgical History ovarian cyst removal Surgical History pacemaker Surgical History cholecystectomy [facility] Other Summary Purpose Family History No Family History Records FoundNo Family History Records FoundNo Family History Records FoundNo Family History Records Found Advance Directives No Advanced Directives Records FoundNo Advanced Directives Records FoundNo Advanced Directives Records FoundNo Advanced Directives Records Found Additional Source Comments INFORMATION SOURCE (unrecogn ized section and content) DATE CREATED AUTHOR 12/13/2018 [facility] DATE CREATED AUTHOR AUTHOR'S ORGANIZ ATION 03/21/2023 [facility] DATE CREATED AUTHOR AUTHOR'S ORGANIZ ATION 11/19/2023 [facility] DATE CREATED AUTHOR AUTHOR'S ORGANIZ ATION 02/04/2024 [facility] EPIC REASON FOR VISIT [...] BE BASED ON THE PRIMARY CLINICAL RECORDS. [facility] [employer] [facility]. provides no warranty or guarantee of the accuracy or completeness of information in this document.
[2024-03-24 19:26] LABS: Internal Control Within Normal Limits; Occult Blood Positive
== END 2024-03-23 15:27 | disposition home or self-care (01) ==
LOC: LAB 15:26
PROVIDERS: PCP Nurse Practitioner; Visit Provider Nurse Practitioner
DX: D64.89 Other specified anemias (principal)
CPT/HCPCS: G0328

== ENCOUNTER 2024-04-19 14:41 | Outpatient (REF) | payer MEDICARE, SELFPAY ==
--- OUTSIDE RECORDS SUMMARY | 2024-04-19 15:03 | XMS_ITS | CCD ---
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; Translations: [ASHD KLETSEL DEHE WINTUN CA W/O ANGINA PECTORIS] Onset: 02-24-2023 Chronic [...] Range Facility Office Visiton 11-18-2023 Follow-up visit [id number] FaridaChung terryodalys Gale 1945 F Date Provider Department Center 11/18/2023 TATA DE LA PAZ [facility] Family History Problem Relation Age of Onset Coronary artery disease Other Asthma Other Family Status - Relation Status Age at Other Level of Service:66761 MD OFFICE/OUTPATIENT NEW MODERATE MDM 45 MINUTES Normal [facility] CBC AUTO DIFFon 03-06-2023 BASO # 0.1 103/ul Normal 0.0-0.1 [facility] Comment on above: Performed By: #### C BC #### [facility] [address] [place] [address] Dr. Kym Chaudhry Basophils/100 WBC (Bld) 0.8 % Normal 0.2-2.0 [facility] Comment on above: Performed By: #### C BC #### [facility] [address] [place] [address] Dr. Kym Chaudhry EO # 0.3 103/ul Normal 0.0-0.7 [facility] Comment on above: Performed By: #### C BC #### [facility] [address] [place] [address] Dr. Kym Chaudhry Eosinophils/100 WBC (Bld) 4.0 % Normal 0.9-7.0 [facility] Comment on above: Performed By: #### C BC #### [facility] [address] [place] [address] Dr. Kym Chaudhry Erythrocyte distribution width (RBC) [Ratio] 14.5 % Normal 11.0-15.0 [facility] Comment on above: Performed By: #### C BC #### [facility] [address] [place] [address] Dr. Kym Chaudhry Hematocrit (Bld) [Volume fraction] 35.3 % Critically low 36.0-48.0 [facility] Comment on above: Performed By: #### C BC #### [facility] [address] [place] [address] Dr. Kym Chaudhry Hemoglobin (Bld) [Mass/Vol] 11.0 g/dL Critically low 12.0-16.0 [facility] Comment on above: Performed By: #### C BC #### [facility] [address] [place] [address] Dr. Kym Chaudhry IG # 0.02 10e3/ul Normal 0.00-0.03 [facility] Comment on above: Performed By: #### C BC #### [facility] [address] [place] [address] Dr. Kym Chaudhry IG % 0.3 % Normal 0.0-0.5 [facility] Comment on above: Performed By: #### C BC #### [facility] [address] [place] [address] Dr. Kym Chaudhry LYMPH # 1.9 103/ul Normal 1.2-3.8 [facility] Comment on above: Performed By: #### C BC #### [facility] [address] [place] [address] Dr. Kym Chaudhry Lymphocytes/100 WBC (Bld) 26.7 % Normal 20.5-60.0 [facility] Comment on above: Performed By: #### C BC #### [facility] [address] [place] [address] Dr. Kym Chaudhry MANUAL DIFF REQ NO Normal [facility] Comment on above: Performed By: #### C BC #### [facility] [address] [place] [address] Dr. Kym Chaudhry MCH (RBC) [Entitic mass] 25.8 pg Critically low 26.7-34.0 [facility] Comment on above: Performed By: #### C BC #### [facility] [address] [place] [address] Dr. Kym Chaudhry MCHC (RBC) [Mass/Vol] 31.2 g/dL Normal 29.9-35.2 [facility] Comment on above: Performed By: #### C BC #### [facility] [address] [place] [address] Dr. Kym Chaudhry MCV (RBC) [Entitic vol] 82.7 fL Normal 81.0-99.0 [facility] Comment on above: Performed By: #### C BC #### [facility] [address] [place] [address] Dr. Kym Chaudhry MONO # 0.5 103/ul Normal 0.3-0.8 [facility] Comment on above: Performed By: #### C BC #### [facility] [address] [place] [address] Dr. Kym Chaudhry Monocytes/100 WBC (Bld) 6.7 % Normal 1.7-12.0 [facility] Comment on above: Performed By: #### C BC #### [facility] [address] [place] [address] Dr. Kym Chaudhry NEUT # 4.5 103/ul Normal 1.4-6.5 [facility] Comment on above: Performed By: #### C BC #### [facility] [address] [place] [address] Dr. Kym Chaudhry Neutrophils/100 WBC (Bld) 61.5 % Normal 43.0-75.0 [facility] Comment on above: Performed By: #### C BC #### [facility] [address] [address] [address] Kym Chaudhry Platelet mean volume (Bld) [Entitic vol] 9.9 fL Normal 9.5-13.5 [facility] Comment on above: Performed By: #### C BC #### [facility] [address] [address] [address] Kym Chaudhry PLT 237 103/ul Normal 150-450 [facility] Comment on above: Performed By: #### C BC #### [facility] [address] [address] [address] Kym Chaudhry RBC 4.27 106/ul Normal 4.20-5.40 [facility] Comment on above: Performed By: #### C BC #### [facility] [address] [address] [address] Kym Chaudhry WBC 7.3 103/ul Normal 4.0-11.0 [facility] Comment on above: Performed By: #### C BC #### [facility] [address] [address] [address] Kym Chaudhry ECHOCARDIO M/2D COMPLETEon 0 03-06-2023 ECHOCARDIO M/2D COMPLETE Patient: JIM LANCE Exam Date: 03/06/2023 : 1945 Gender:F Ordering : DR HARDY FERNANDEZ M.D. Admission #: [id number] Family : Order #: [id number] CLICK HERE TO VIEW EXAM ECHOCARDIOGRAM REPORT [...] Smalls M.D. on 03/09/2023 at 15:21 Normal [facility] LIPID PROFILEon 03-06-2023 CHOL-HDL RATIO NORM SEE BELOW Normal [facility] Comment on above: Result Comment: 3.3 - 4.4 LOW RISK 4.4 - 7.1 AVERAGE RISK 7.1 - 11.0 MODERATE RISK >11.0 HIGH RISK Performed By: #### C KAREN, LIPID #### [facility] [address] [place] [address] Dr. Kym Chaudhry Cholesterol [Mass/Vol] 145 mg/dL Normal <=200 [facility] Comment on above: Performed By: #### C MP, LIPID #### [facility] [address] [address] [address] Kym Chaudhry Cholesterol in HDL [Mass/Vol] 46 mg/dL Normal 40-60 [facility] Comment on above: Performed By: #### C MP, LIPID #### [facility] [address] [address] [address] Kym Chaudhry Cholesterol in LDL [Mass/Vol] 73.8 mg/dL Normal [facility] Comment on above: Performed By: #### C MP, LIPID #### [facility] [address] [address] [address] Kym Chaudhry Cholesterol.total /Cholesterol in HDL [Mass ratio] 3.2 {ratio} Normal [facility] Comment on above: Performed By: #### C MP, LIPID #### [facility] [address] [address] [address] Kym Chaudhry HDL NORMAL > or = 60 mg/dl - LO W CARDIOVASCULAR RISK <40 mg/dl - HIGH CARDIOVASCULAR RISK Normal [facility] Comment on above: Performed By: #### C MP, LIPID #### [facility] [address] [address] [address] Kym Chaudhry LDL CALC NORMAL SEE BELOW Normal [facility] Comment on above: Result Comment: <100 mg/dl OPTIMAL 100 - 129 mg/dl NEAR OR ABOVE OPTIMAL 130 - 159 mg/dl BORDERLINE HIGH 160 - 189 mg/dl HIGH >190 mg/dl VERY HIGH Performed By: #### C MP, LIPID #### [facility] [address] [address] [address] Kym Chaudhry Triglyceride [Mass/Vol] 126 mg/dL Normal <=150 [facility] Comment on above: Performed By: #### C MP, LIPID #### [facility] [address] [address] [address] Kym Chaudhry VLDL CALC 25.2 mg/dL Normal [facility] Comment on above: Performed By: #### C MP, LIPID #### [facility] [address] [address] [address] Kym Chaudhry PROF 14(COMP METB)on 023 Albumin [Mass/Vol] 3.1 g/dL Critically low 3.4-5.0 [facility] Comment on above: Performed By: #### C MP, LIPID #### [facility] [address] [place] [address] Dr. Kym Chaudhry Albumin/Globulin [Mass ratio] 0.7 {ratio} Normal [facility] Comment on above: Performed By: #### C MP, LIPID #### [facility] [address] [address] [address] Kym Chaudhry ALP [Catalytic activity/Vol] 125 U/L Critically high 46-116 [facility] Comment on above: Performed By: #### C MP, LIPID #### [facility] [address] [place] [address] Dr. Kym Chaudhry ALT [Catalytic activity/Vol] 24 U/L Normal 14-59 [facility] Comment on above: Performed By: #### C MP, LIPID #### [facility] [address] [place] [address] Dr. Kym Chaudhry Anion gap [Moles/Vol] 11.6 mmol/L Normal [facility] Comment on above: Performed By: #### C MP, LIPID #### [facility] [address] [place] [address] Dr. Kym Chaudhry AST [Catalytic activity/Vol] 17 U/L Normal 15-37 [facility] Comment on above: Performed By: #### C MP, LIPID #### [facility] [address] [place] [address] Dr. Kym Chaudhry Bilirubin [Mass/Vol] 0.5 mg/dL Normal 0.2-1.0 [facility] Comment on above: Performed By: #### C MP, LIPID #### [facility] [address] [place] [address] Dr. Kym Chaudhry Calcium [Mass/Vol] 8.5 mg/dL Normal 8.5-10.1 [facility] Comment on above: Performed By: #### C MP, LIPID #### [facility] [address] [place] [address] Dr. Kym Chaudhry Chloride [Moles/Vol] 109 mmol/L Critically high 98-107 [facility] Comment on above: Performed By: #### C MP, LIPID #### [facility] [address] [place] [address] Dr. Kym Chaudhry CO2 [Moles/Vol] 27.5 mmol/L Normal 21.0-32.0 [facility] Comment on above: Performed By: #### C MP, LIPID #### [facility] [address] [place] [address] Dr. Kym Chaudhry Creatinine [Mass/Vol] 0.91 mg/dL Normal 0.55-1.02 [facility] Comment on above: Performed By: #### C MP, LIPID #### [facility] [address] [place] [address] Dr. Kym Chaudhry EGFR-AF SOMALI >60 Normal >=60 [facility] Comment on above: Performed By: #### C MP, LIPID #### [facility] [address] [place] [address] Dr. Kym Chaudhry EGFR-NON AF SOMALI 60 mL/min/1.73m2 Normal >=60 [facility] Comment on above: Performed By: #### C MP, LIPID #### [facility] [address] [place] [address] Dr. Kym Chaudhry Globulin (S) [Mass/Vol] 4.2 g/dL Normal [facility] Comment on above: Performed By: #### C MP, LIPID #### [facility] [address] [place] [address] Dr. Kym Chaudhry Glucose [Mass/Vol] 99 mg/dL Normal 74-106 [facility] Comment on above: Performed By: #### C MP, LIPID #### [facility] [address] [place] [address] Dr. Kym Chaudhry Potassium [Moles/Vol] 4.1 mmol/L Normal 3.5-5.1 [facility] Comment on above: Performed By: #### C MP, LIPID #### [facility] [address] [place] [address] Dr. Kmy Chaudhry Protein [Mass/Vol] 7.3 g/dL Normal 6.4-8.2 [facility] Comment on above: Performed By: #### C MP, LIPID #### [facility] [address] [address] [address] Kym Chaudhry Sodium [Moles/Vol] 144 mmol/L Normal 136-145 [facility] Comment on above: Performed By: #### C MP, LIPID #### [facility] [address] [address] [address] Kym Chuadhry Urea nitrogen [Mass/Vol] 19.0 mg/dL Critically high 7.0-18.0 [facility] Comment on above: Performed By: #### C MP, LIPID #### [facility] [address] [place] [address] Dr. Kym Chaudhry Urea nitrogen/Creatini ne [Mass ratio] 20.9 mg/mg Normal [facility] Comment on above: Performed By: #### C MP, LIPID #### [facility] [address] [place] [address] Dr. Kym Chaudhry Office Visiton 02-24-2023 Follow-up visit [id number] FaridaChung terryodalys Gale 1945 F Date Provider Department Center 02/24/2023 HARDY VELIZ [facility] Family History Problem Relation Age of Onset Coronary artery disease Other Asthma Other Family Status - Relation Status Age at Other Level of Service:03297 MD OFFICE/OUTPATIENT ESTABLISHED MOD MDM 30-39 MIN Normal [facility] COVID Quick Testingon 2021 Result Negative [facility] Other Vital Signs Date Time Vital Sign Value Performing Clinician Facility 10-19-2021 17:00-0500 Body height 162.56 cm Teena Ramos Other [facility] Other 10-19-2021 17:00-0500 Body mass index (BMI) [Ratio] 30.04 kg/m2 Teena Ramos Other [facility] Other 10-19-2021 17:00-0500 Body temperature 97.3 [degF] Teena Ginty Other [facility] Other 10-19-2021 17:00-0500 Body weight 79.38 kg Teena Ginty Other [facility] Other 10-19-2021 17:00-0500 Respiratory rate 18 /min Teena Ginty Other [facility] Other 10-19-2021 17:00-0500 SaO2% (BldA) [Mass fraction] 98 % Teena Ginty Other [facility] Other Encounters Encounter Date Encounter Type Care Provider Facility Start: 02-03-2024 End: 02-03-2024 ambulatory ALEJANDRO QUEZADA Not Available Start: 11-18-2023 End: 11-18-2023 ambulatory [facility] Start: 07-01-2023 End: 07-01-2023 ambulatory [facility] Start: 03-06-2023 End: 03-07-[address] [facility] Facility: Start: 03-06-2023 End: 03-07-[address] [facility] Facility: Start: 02-24-2023 End: 02-24-2023 ambulatory [facility] Start: 01-13-2023 End: 01-13-2023 ambulatory [facility] Start: 10-19-2021 End: 10-19-2021 ambulatory Teena Ginty Other [facility] Other Start: 10-19-2021 Office outpatient visit 15 minutes Teena Ginty [facility] Start: 12-11-2018 End: 12-12-2018 Patient encounter procedure DEFAULT PHYSICIAN Facility:[facility] Payers Date Payer Category Payer Medicare [id number] 2. [id number] 1945 Unknown [id number] [id number] 1945 Unknown [id number] 1945 Unknown [id number] [id number] 1945 Unknown [id number] [id number] [id number] Unknown Social History Date Type Detail Facility Sex Assigned At [facility] Other Progress note 11-18-2023 Note Date & [...] All other systems reviewed and are negative. [place] Electrophysiology Consult Note Reason for visit: ICD in situ HPI: Jim Lance is a 78 y.o. 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 it was initially implanted at [facility] and subsequently underwent a generator change [...] Abnormal ECG Arrhythmia CHF (congestive heart failure) ([facility]) Coronary artery disease Hypertension Nonischemic congestive cardiomyopathy ([facility]) NSVT (nonsustained ventricular tachycardia) ([facility]) Primary cardiomyopathy ([facility]) SVT (supraventricular tachycardia) ([facility]) PSH: Past Surgical History: Procedure Laterality Date [...] on file Intimate Partner Violence: Unknown (11/18/2023) [place] Safety & Environment Fear of Current or [...] the extremities Integu (more content not included)... [facility] Progress note 02-24-2023 Note Date & Type Note Facility 02-24-2023 Note [place] Cardiology - [facility] Augustine Lance is a 77 [...] Alcohol use: Not Currently Drug use: Never HPI Jim is seen in follow-up. She is a [...] left ventricular systol (more content not included)... [facility] Evaluation note 10-19-2021 Note Date & Type Note Facility 10-19-2021 Evaluation note Encounter Date Diagnosis Assessment Notes Oct, Contact with and (suspected) exposure to other viral communicable diseases (ICD-10 - Z20.671) Advised patient that COVID antigen test was [...] given in writting by [facility] Care At Home document [facility] Other History general Narrative - Reported Note Date & Type Note Facility History general Narrative - Reported Type Medical History Congestive heart failure Surgical History appendectomy Surgical History ovarian cyst removal Surgical History pacemaker Surgical History cholecystectomy [facility] Other Summary Purpose Family History No Family History Records FoundNo Family History Records FoundNo Family History Records FoundNo Family History Records Found Advance Directives No Advanced Directives Records FoundNo Advanced Directives Records FoundNo Advanced Directives Records FoundNo Advanced Directives Records Found Additional Source Comments INFORMATION SOURCE (unrecogn ized section and content) DATE CREATED AUTHOR 12/13/2018 [facility] DATE CREATED AUTHOR AUTHOR'S ORGANIZ ATION 03/21/2023 [facility] DATE CREATED AUTHOR AUTHOR'S ORGANIZ ATION 11/19/2023 [facility] DATE CREATED AUTHOR AUTHOR'S ORGANIZ ATION 02/04/2024 [facility] d[facility] Specialists EPIC REASON FOR VISIT [...] BE BASED ON THE PRIMARY CLINICAL RECORDS. [facility] provides no warranty or guarantee of the accuracy or completeness of information in this document.
[2024-04-19 20:22] LABS: Internal Control Within Normal Limits; Occult Blood Positive
== END 2024-04-19 14:42 | disposition home or self-care (01) ==
LOC: LAB 14:41
PROVIDERS: PCP Nurse Practitioner; Visit Provider Nurse Practitioner
DX: R19.5 Other fecal abnormalities (principal)
CPT/HCPCS: G0328

== ENCOUNTER 2025-07-28 09:01 | Outpatient (OUT) | payer MEDICARE, SELFPAY ==
--- OUTSIDE RECORDS SUMMARY | 2025-07-28 09:10 | XMS_ITS | Clinical Summary ---
Author Organization [facility] Healthcare Address [address] [place] [address] Care Team Providers Care Bd Special Education Teacher Name Role Phone Mariela Pascual LATHE SANDER Unavailable [phone] Lyle Dominguez MD Primary Care Provider [phone] Allergies No known active allergies Medications aspirin 81 MG EC tablet Take 1 tablet by mouth Daily Active lisinopril 20 MG tablet 20 mg 07/16/2023 Active metoprolol succinate XL (Toprol-XL) 100 MG 24 hr tablet Take 100 mg by mouth Daily Pt to take 1 tablet (100 mg) plus the 1 tablet (50mg) daily to equal 150mg 08/01/2023 Active metoprolol succinate XL (Toprol-XL) 50 MG 24 hr tablet Take 50 mg by mouth in the morning. 02/24/2023 Active Active Problems Problem Noted Date Diagnosed Date Occult blood positive stool 04/01/2024 ANN (iron deficiency anemia) 03/25/2024 Other specified anemias 02/10/2024 Hypertensive disorder 02/03/2024 Chronic right shoulder pain 02/03/2024 Assessment & Plan (02/03/2024 12:38 PM EDT): Check xray Suspect AC joint OA, differentials also include rotator cuff pathology as well Based on xray could consider ortho eval or PT Pt wants to wait to see what xray shows Encounter for subsequent ginger [facility] wellness visit (AWV) in Medicare patient 02/03/2024 Assessment & Plan (02/03/2024 12:39 PM EDT): Reviewed Ht/Wt/BMI Recommend eye exam yearly Recommend dental exams twice a year Balance work/leisure activities Exercises is recommended most days of the week (appropriate as chronic conditions allow) Follow up yearly and prn Hand out of living will POA Recommend pneumovax Implantable cardioverter-defibrillator (ICD) in situ 10/23/2012 Assessment & Plan (02/03/2024 12:38 PM EDT): Continue with cardiology Primary cardiomyopathy 09/16/2012 Congestive heart failure 04/23/2012 Overview (02/03/2024): NORMAL EF, NO CHANGE IN EFFUSION ON ECHO Essential hypertension 04/23/2012 Assessment & Plan (02/03/2024 12:38 PM EDT): Stable today Meds per cardiology Check labs 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 No 02/03/2024 Within the last year, have y ou been humiliated or emotionally abused in other ways by your partner or ex-partner? No Within the last year, have y ou been kicked, hit, slapped, or otherwise physically hurt by your partner or ex-partner? No 02/03/2024 Within the last year, have y ou been raped or forced to have any kind of sexual activity by your partner or ex-partner? No 02/03/2024 Social Connection and Isolation Panel Answer Date Recorded In a typical week, how many times do you talk on the phone with family, friends, or neighbors? Twice a week 02/03/20 How often do you get togethe r with friends or relatives? Twice a week 02/03/2024 How often do you attend [facility] or jainism services? 1 to 4 times per year 02/03/2024 Do you belong to any clubs o r organizations such as hindu groups, unions, fraternal or athletic groups, or school groups? No 02/03/2024 How often do you attend meet ings of the clubs or organizations you belong to? Never 02/03/2024 Are you , , di vorced, , never , or living with a partner? 02/03/2024 AUDIT-C Answer Date Recorded Q1: How often do you have a drink containing alcohol? Never 02/03/2024 Q2: How many drinks containi ng alcohol do you have on a typical day when you are drinking? Patient does not drink Q3: How often do you have si x or more drinks on one occasion? Never 02/03/2024 Overall Financial Resource Strain (CARDIA) Answe r Date Recorded How hard is it for you to pa y for the very basics like food, housing, medical care, and heating? Not hard at all 02/03/2024 [facility] - Occupational Stress Questionnaire Answer Date Recorded Do you feel stress - tense, restless, nervous, or anxious, or unable to sleep at night because your mind is troubled all the time - these days? Not at all 02/03/2024 Exercise Vital Sign Answer Date Recorde d On average, how many days pe r week do you engage in moderate to strenuous exercise (like a brisk walk)? 0 days 02/03/2024 On average, how many minutes do you engage in exercise at this level? 0 min 02/03/2024 Hunger Vital Sign Answer Date Recorded Within the past 12 months, y ou worried that your food would run out before you got the money to buy more. Never true 02/03/20 24 Within the past 12 months, t he food you bought just didn't last and you didn't have money to get more. Never true 02/03/2024 PRAPARE - Transportation Answer Date Re corded In the past 12 months, has l ack of transportation kept you from medical appointments or from getting medications? No 01/12 In the past 12 months, has l ack of transportation kept you from meetings, work, or from getting things needed for daily living? No 02/03/2024 Housing Stability Vital Sign Answer Geo e Recorded In the last 12 months, was t here a time when you were not able to pay the mortgage or rent on time? No 02/03/2024 In the last 12 months, how many places have you lived? 1 02/03/2024 In the last 12 months, was t here a time when you did not have a steady place to sleep or slept in a senior living (including now)? No 02/03/2024 Comments Unknown Sex and Gender Information Value Date Recorded Sex Assigned at Not on file Legal Sex Female 7:05 PM EDT Gender Identity Not on file Sexual Orientation Not on file Last Filed Vital Signs Vital Sign Reading Time Taken Comments Blood Pressure 138/90 02/03/2024 10:06 AM EDT Pulse 76 02/03/2024 10:06 AM EDT Temperature 36.7 C (98 F) 02/03/2024 10:06 AM EDT Respiratory Rate 18 02/03/2024 10:06 AM EDT Oxygen Saturation 97% 02/03/2024 10:06 AM EDT Inhaled Oxygen Concentration - - Weight 80.3 kg (177 lb) 02/03/2024 10:06 AM EDT Height 162.6 cm (5' 4 ) 02/03/2024 10:06 AM EDT Body Mass Index 30.38 02/03/2024 10:06 AM EDT Plan of Treatment Health Maintenance Due Date Last Done Comments Diabetes: Hemoglobin A1C 1945 Diabetes: Retinopathy Screening 1957 Pneumococcal Vaccine: 65+ Years (1 of 2 - PCV) 967 Medicare Annual Wellness (AWV) 02/02/2025 02/03/2024 Diabetes: Urine Protein Screening 02/09/2025 024 Influenza Vaccine (#1) 2025 Insurance [facility] MEDICARE ADVANTAGE Care Teams Bd Special Education Teacher Relationship Specialty Start Date End Date Mariela Pascual NP [address] [place] [id number] PCP - Cynthia TAVAREZ 09/12/23 Lyle Dominguez MD [address] [place] [id number] PCP - General Family Medicine 02/03/24
--- OUTSIDE RECORDS SUMMARY | 2025-07-28 09:10 | XMS_ITS | Clinical Summary ---
Author Organization [facility] Address [address] [place] [address] Care Team Providers Care Flight Operations Inspector Name Role Phone Mariela Pascual MD Primary Care Provider [phone] Allergies Active Allergy Reactions Criticality Noted Date Comments Atorvastatin Other 2024 myalgias Medications aspirin 81 mg EC tablet Take 1 tablet every day by oral route. Active metoprolol succinate XL (Toprol-XL) 50 mg 24 hr tabletIndications :Chronic systolic congestive heart failure (CMS/HCC),NSVT (nonsustained ventricular tachycardia) (CMS/HCC) Take 1 tablet (50 mg) by mouth once daily as directed. Take in addition to the 100 mg tablet for a total of 150 mg daily. 90 tablet 3 5 04/22/20 26 Active metoprolol succinate XL (Toprol-XL) 100 mg 24 hr tabletIndications :Benign hypertensive heart disease with heart failure (CMS/HCC) TAKE 1 TABLET IN THE MORNING . DO NOT CRUSH OR CHEW 90 tablet 3 5 Active lisinopril 20 mg tabletIndications :Benign hypertensive heart disease with heart failure (CMS/HCC) Take 2 tablets (40 mg) by mouth in the morning. 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 11/18/19 Type 1 diabetes mellitus 04/23/2012 024 Encounters Date Type Department Care Team Description 07/05/2025 1:00 PM EDT Ancillary Procedure [facility] [address] [place] [address] Encounter for checking and testing of cardiac pacemaker pulse generator (battery) 04/29/2025 9:00 AM EDT Office Visit [facility] [address] [place] [address] Gautam Rogers CNP Benign hypertensive heart disease with heart failure (CMS/HCC) (Primary Dx); Heart failure with improved ejection fraction (HFimpEF) (CMS/HCC); ICD (implantable cardioverter-defibril lator), single, in situ; Coronary artery disease involving [place] coronary artery of [place] heart without angina pectoris; Need for lipid screening; SVT (supraventricular tachycardia) from Last 3 Months Family History Medical History Relation Name Comments Asthma Other Coronary artery disease Other Relation Name Status Comments Other Social History Tobacco Use Types Packs/Day Years Used Date Smoking Tobacco: Never Smokeless Tobacco: Never Tobacco Cessation:Counseling Given: Not Answered Alcohol Use Standard Drinks/Week Comments Not Currently 0 (1 standard drink = 0.6 oz pur e alcohol) [place] Safety & Environment Answer Date Rec orded Fear of Current or Ex-Partner Not on file Emotionally Abused Not on file 12/04/2023 Physically Abused Not on file 12/04/2023 Sexually Abused Not on file 12/04/2023 Physically or Sexually Abused Not on file Comments Unknown Sex and Gender Information Value Date Recorded Sex Assigned at Female 04/20/2025 12:57 PM EDT Legal Sex Female 10:24 PM EDT Gender Identity Female 04/20/2025 12:57 PM EDT Sexual Orientation Heterosexual or Straight 06/2025 12:57 PM EDT Last Filed Vital Signs Vital Sign Reading Time Taken Comments Blood Pressure 154/72 04/29/2025 8:55 AM EDT Pulse 65 04/29/2025 8:55 AM EDT Temperature - - Respiratory Rate - - Oxygen Saturation 96% 04/29/2025 8:55 AM EDT Inhaled Oxygen Concentration - - Weight 84.8 kg (187 lb) 2024 11:03 AM EST Height 162.6 cm (5' 4 ) 04/29/2025 8:55 AM EDT Body Mass Index 32.1 2024 11:03 AM EST Plan of Treatment Upcoming Encounters Date Type Department Care Team (Late st Contact Info) Description 08/08/2025 9:00 AM EDT Office Visit [facility] [address] [place] [address] Gautam Rogers, FILTER TENDER JELLY [address] [place] [address] Health Maintenance Due Date Last Done Comments Diabetes: Hemoglobin A1C 1945 Medicare Annual Wellness (AWV) 1945 Diabetes: Retinopathy Screening 1957 Depression Screening 1959 Diabetes: Urine Protein Screening 1966 Pneumococcal Vaccine: 50+ Years (1 of 2 - PCV) 1966 Adult Tetanus 1969 Zoster Vaccines (1 of 2) 1997 Fall Risk Screening 2012 COVID-19 Vaccine (3 - 2024-2 6 season) 2025 02/01/2021, 01/10/2021 Influenza Vaccine (#1) 2025 HIB Vaccines Aged Out No longer eligi ble based on patient's age to complete this topic HPV Vaccines Aged Out No longer eligi ble based on patient's age to complete this topic IPV Vaccines Aged Out No longer eligi ble based on patient's age to complete this topic Meningococcal B Vaccine Aged Out No l onger eligible based on patient's age to complete this topic Meningococcal Vaccine Aged Out No lida nicole eligible based on patient's age to complete this topic Rotavirus Vaccines Aged Out No longer eligible based on patient's age to complete this topic Procedures Procedure Name Priority Date/Time Associated Diagnosis Comments CARDIAC DEVICE CHECK - IN CLINIC - ICD SINGLE CHAMBER W/ PROG Routine 07/06/2025 11:57 AM EDT Encounter for checking and testing of cardiac pacemaker pulse generator (battery) from Last 3 Months Results * CARDIAC DEVICE CHECK - IN CLINIC - ICD SINGLE CHAMBER W/ PROG (07/06/2025 11:57 AM EDT) Anatomical Region Laterality Modality Other Narrative 07/18/2025 1:49 PM EDT By using the attestations below, the signing clinician agrees that I have read and verify that the documentation has been personally reviewed by me and ensure that the documentation accurately reflects the encounter. Routine EP device follow up as per schedule. Please see attached note us Deven Savage MD CV IMPLANTABLE CARDIAC DEVICE NM OCEDURES Final Result from Last 3 Months Insurance [employer] MEDICARE ADVANTAGE Care Teams Flight Operations Inspector Relationship Specialty Start Date End Date Mariela Pascual MD [address] [place] [address] PCP - General Nurse Practitioner 11/18/23
--- OUTSIDE RECORDS SUMMARY | 2025-07-28 09:10 | XMS_ITS | Encounter Summary ---
Author Organization [facility] Address [address] [place] [address] Care Team Providers Care Vaccines Solutions Specialist Name Role Phone Lionel Puga DO Primary Care Provider [phone] Mariela Pascual MD Primary Care Provider Encounter Details Date Type Department Care Team (Late st Contact Info) Description 05/30/2022 [facility] Only [facility] Family Medicine [address] [place] [phone] Alma Trejo MA Social History Tobacco Use Types Packs/Day Years Used Date Smoking Tobacco: Never Assessed Comments Unknown Sex and Gender Information Value Date Recorded Sex Assigned at Female 04/20/2025 12:57 PM EDT Legal Sex Female 10:24 PM EDT Gender Identity Female 04/20/2025 12:57 PM EDT Sexual Orientation Heterosexual or Straight 06/2025 12:57 PM EDT documented as of this encounter Plan of Treatment Upcoming Encounters Date Type Department Care Team (Late st Contact Info) Description 08/08/2025 9:00 AM EDT Office Visit [facility] [address] [place] [address] Gautam Rogers, DANELLE [address] [place] [address] documented as of this encounter Visit Diagnoses Not on filedocumented in this encounter Care Teams Vaccines Solutions Specialist Relationship Specialty Start Date End Date Lionel Puga DO [address] [place] [address] PCP - General 06/03/22 11/17/23 Mariela Pascual MD [address] [place] [address] PCP - General Nurse Practitioner 11/18/23 documented as of this encounter
--- OUTSIDE RECORDS SUMMARY | 2025-07-28 09:10 | XMS_ITS | Encounter Summary ---
Author Organization [facility] Address [address] [place] [address] Care Team Providers Care Medical Insurance Coding Specialist Name Role Phone Lionel Puga DO Primary Care Provider [phone] Mariela Pascual MD Primary Care Provider Reason for Visit * Reason Comments Med Change Request Encounter Details Date Type Department Care Team (Late st Contact Info) Description 08/02/2022 Refill [facility] at [facility] [address] [place] [address] Meli Bhagat, SUPERVISOR HISTOLOGY [address] [place] [address] Benign hypertensive heart disease with heart failure (CMS/HCC) Social History Tobacco Use Types Packs/Day Years Used Date Smoking Tobacco: Never Alcohol Use Standard Drinks/Week Comments Not Currently 0 (1 standard drink = 0.6 oz pur e alcohol) Comments Unknown Sex and Gender Information Value Date Recorded Sex Assigned at Female 04/20/2025 12:57 PM EDT Legal Sex Female 10:24 PM EDT Gender Identity Female 04/20/2025 12:57 PM EDT Sexual Orientation Heterosexual or Straight 06/2025 12:57 PM EDT COVID-19 Exposure Response Date Recorded In the last 10 days, have yo u been in contact with someone who was confirmed or suspected to have Coronavirus/COVID-19? No / Unsure 08/02/2022 1:15 PM EDT documented as of this encounter Plan of Treatment Upcoming Encounters Date Type Department Care Team (Late st Contact Info) Description 08/08/2025 9:00 AM EDT Office Visit [facility] [address] [place] [address] Gautam Rogers, SUPERVISOR HISTOLOGY [address] [place] [address] documented as of this encounter Visit Diagnoses Diagnosis Benign hypertensive heart disease with heart failure (CMS/HCC) documented in this encounter Care Teams Medical Insurance Coding Specialist Relationship Specialty Start Date End Date Lionel Puga DO [address] [place] [address] PCP - General 06/03/22 11/17/23 Mariela Pascual MD [address] [place] [address] PCP - General Nurse Practitioner 11/18/23 documented as of this encounter
--- OUTSIDE RECORDS SUMMARY | 2025-07-28 09:10 | XMS_ITS | Encounter Summary ---
Author Organization [facility] Address [address] [place] [address] Care Team Providers Care Hardware Sales Assistant Name Role Phone Mariela Pascual PANCAKE PROFESSIONAL Unavailable [phone] Lyle Dominguez MD Primary Care Provider [phone] William Wilson LPN Unavailable Unavailable Encounter Details Date Type Department Care Team (Late st Contact Info) Description 02/10/2024 Clinisync Result Encounter [facility] Department Unsolicited Mariela Pascual NP [address] [place] [address] Social History Tobacco Use Types Packs/Day Years Used Date Smoking Tobacco: Never Smokeless Tobacco: Never Alcohol Use Standard Drinks/Week Comments Never 0 [...] friends, or neighbors? Twice a week 02/03/20 24 How often do you get togethe r with friends or relatives? Twice a week 02/03/2024 How often do you attend chur ch or confucianist services? 1 to 4 times per year 02/03/2024 Do you belong to any clubs o r organizations such as adventism groups, unions, fraternal or athletic groups, or [...] and heating? Not hard at all 02/03/2024 [facility] [place] [facility] Occupat ional [facility] - Occupational Stress [...] place to sleep or slept in a snf (including now)? No 02/03/2024 Comments Unknown Sex and Gender Information Value Date Recorded Sex Assigned at Not on file Legal Sex Female 7:05 PM EDT Gender Identity Not on file Sexual Orientation Not on file documented as of this encounter Plan of Treatment Not on file documented as of this encounter Procedures Procedure Name Priority Date/Time Associated Diagnosis Comments XR SHOULDER RT MIN 2V 02/10/2024 8:55 AM EDT [facility] CMP (CMP) ([facility]) Routine 02/10/2024 8:22 AM EDT ALL CBC WITH AUTO DIFF Routine 02/10/2024 8:22 AM EDT TB UA (CLEAN/CATCH) MICROSCOPIC IF INDICATE Routine 02/10/2024 8:10 AM EDT TB MICROALB CREAT RATIO RANDOM Routine 02/10/2024 8:10 AM EDT documented in this encounter Results * XR SHOULDER RT MIN 2V (02/10/2024 8:55 AM EDT) Anatomical Region Laterality Modality Other 02/10/2024 8:55 AM EDT Narrative 02/10/2024 8:57 AM EDT The [address] [address] XRay Report Signed Patient: STEPHANE MURPHY MR#: [id number] : 1945 Acct:[id number] Age/Sex: 78 / F ADM Date: 02/10/24 Loc: LAB Attending Dr: Mariela Pascual PANCAKE PROFESSIONAL Ordering Physician: Mariela Pascual NP Date of Service: 02/10/24 Procedure(s): XR shoulder RT min 2V Accession Number(s): [id number] cc: Mariela Pascual NP The [place] [address] Patient Name: STEPHANE MURPHY MRN: [facility]:[id number] date: 1945 Sex: F Assigned Patient Location: LAB Current Patient Location: LAB Accession/Order Number: [id number] Exam Date: 02/10/2024 08:30 Report Date: 02/10/2024 08:55 At the request of: MARIELA PASCUAL Procedure: XR shoulder RT min 2V PROCEDURE: XR shoulder RT min 2V COMPARISON: None. HISTORY: Chronic Right Shoulder Pain M25.11 FINDINGS: BONES:No acute fracture or dislocation. Mild glenohumeral and acromioclavicular joint osteoarthropathy with marginal osteophyte formation. 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 No visible soft tissue swelling. EFFUSION:None visible. OTHER: Negative. XR/XR shoulder RT min 2V IMPRESSION: Mild glenohumeral and acromioclavicular joint osteoarthritis Electronically authenticated by: PURA ARTEAGA Date: 02/10/2024 08:55 Dictated By: Pura Arteaga M.D. Signed By: 02/10/24 0857 DD/ 0855 TD/TT: Dewaxer: Procedure Note Radiology, Radiologist, MD - 02/10/2024 [place] [address] XRay Report Signed Patient: STEPHANE MURPHY AMR#: [id number] : 1945cct:[id number] Age/Sex: 78 / FADM Date: 02/10/24 Loc: LAB Attending Dr: Mariela Pascual NP Ordering Physician: Mariela Pascual NP Date of Service: 02/10/24 Procedure(s): XR shoulder RT min 2V Accession Number(s): [id number] cc: Mariela Pascual NP [place] [id number] Patient Name: STEPHANE MURPHY MRN: [facility]:[id number] date: 1945 Sex: F Assigned Patient Location: LAB Current Patient Location: LAB Accession/Order Number: [id number] Exam Date: 02/10/2024 08:30 Report Date: 02/10/2024 08:55 At the request of: MARIELA PASCUAL Procedure: XR shoulder RT min 2V PROCEDURE: XR shoulder RT min 2V COMPARISON: None. HISTORY: Chronic Right Shoulder Pain M25.11 FINDINGS: BONES:No acute fracture or dislocation. Mild glenohumeral and acromioclavicular joint osteoarthropathy with marginal osteophyte formation. 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 No visible soft tissue swelling. EFFUSION:None visible. OTHER: Negative. XR/XR shoulder RT min 2V IMPRESSION: Mild glenohumeral and acromioclavicular joint osteoarthritis Electronically authenticated by: PURA ARTEAGA Date: 02/10/2024 08:55 Dictated By: Pura Arteaga M.D. Signed By:02/10/24 0857 DD/ 0855 TD/TT: Dewaxer: us Mariela Pascual NP [facility]AG[facility] Final Result * (ABNORMAL) ALL CBC WITH AUTO DIFF (02/10/2024 8:22 AM EDT) [facility] WBC 6.6 4.0 - 11.0 10 3/uL TBH TBH RBC 4.18(L) 4.20 - 5.40 10 6/uL TBH TBH HGB 11.0(L) 12.0 - 16.0 g/dL TBH TBH HCT 36.1 36.0 - 48.0 % TBH TBH MCV 86.4 81.0 - 99.0 fL TBH TBH MCH 26.3(L) 26.7 - 34.0 pg TBH TBH MCHC 30.5 29.9 - 35.2 g/dL TBH TBH RDW 14.1 11.0 - 15.0 % TBH TBH PLT 275 150 - 450 10 3/uL TBH TBH MPV 10.6 9.5 - 13.5 fL TBH NEUTROPHILS PERCENT AUTO 65.1 43.0 - 75.0 % TBH LYMPHOCYTES PERCENT AUTO 22.7 20.5 - 60.0 % TBH MONOCYTES PERCENT AUTO 7.2 1.7 - 12.0 % TBH TBH EO % 3.4 0.9 - 7.0 % TBH BASOPHILS PERCENT AUTO 1.4 0.2 - 2.0 % TBH IMMATURE GRANULOCYTES PCT AUTO 0.2 0.0 - 0.5 % TBH NEUTROPHILS ABSOLUTE AUTO 4.3 1.4 - 6.5 10 3/uL TBH LYMPHOCYTES ABSOLUTE AUTO 1.5 1.2 - 3.8 10 3/uL TBH MONOCYTES ABSOLUTE AUTO 0.5 0.3 - 0.8 10 3/uL TBH TBH EO # 0.2 0.0 - 0.7 10 3/uL TBH BASOPHILS ABSOLUTE AUTO 0.1 0.0 - 0.1 10 3/uL TBH IMMATURE GRANULOCYTES ABS AUTO 0.01 0.00 - 0.03 10 3/uL TBH 02/10/2024 8:22 AM EDT 02/10/2024 8:37 AM EDT Narrative [facility] - 02/10/2024 9:13 AM EDT us Mariela Pascual NP [facility] Final Result [facility] TB * (ABNORMAL) [facility] CMP (CMP) (FOR [facility]) (02/10/2024 8:22 AM EDT) SODIUM 140 136 - 145 mmol/L TBH POTASSIUM 4.0 3.5 - 5.1 mmol/L TBH CHLORIDE 105 98 - 107 mmol/L TBH CARBON DIOXIDE 30.2 21.0 - 32.0 mmol/L TBH ANION GAP 8.8 TBH GLUCOSE 106 74 - 106 mg/dL TBH BLOOD UREA NITROGEN 18.0 7.0 - 18.0 mg/dL TBH CREATININE 0.97 0.55 - 1.02 mg/dL TBH TBH EGFR-AF CHILEAN >60 >=60 TBH TBH EGFR-NON AF CHILEAN 56(L) >=60 TBH BUN CREATININE RATIO 18.6 TBH CALCIUM 8.9 8.5 - 10.1 mg/dL TBH BILIRUBIN TOTAL 0.4 0.2 - 1.0 mg/dL TBH ASPARTATE AMINO TRANSFERASE 16 15 - 37 U/L TBH ALANINE AMINOTRANSFERASE 23 14 - 59 U/L TBH ALKALINE PHOSPHATASE 120(H) 46 - 116 U/L TBH TOTAL PROTEIN 7.1 6.4 - 8.2 g/dL TBH ALBUMIN LEVEL 3.0(L) 3.4 - 5.0 g/dL TBH GLOBULIN 4.1 g/dL TBH ALBUMIN GLOBULIN RATIO 0.7 TBH 02/10/2024 8:22 AM EDT 02/10/2024 8:37 AM EDT Narrative [facility] - 02/10/2024 9:10 AM EDT us Mariela Pascual NP [facility] Final Result [facility] INCLUDES THE [facility] * (ABNORMAL) TBH UA (CLEAN/CATCH) MICROSCOPIC IF INDICATE (02/10/2024 8:10 AM EDT) COLOR URINE YELLOW YELLOW TBH CLARITY URINE CLEAR CLEAR TBH SPECIFIC GRAVITY URINE >=1.030(A) 1.005 - 1.025 TBH PH URINE 5.5 5.0 - 9.0 TBH PROTEIN URINE NEGATIVE NEG/TRACE mg/dL TBH GLUCOSE URINE UA NEGATIVE NEGATIVE mg/dL TBH BILIRUBIN URINE NEGATIVE NEGATIVE TBH KETONES URINE NEGATIVE NEGATIVE mg/dL TBH BLOOD URINE NEGATIVE NEGATIVE TBH NITRITE URINE NEGATIVE NEGATIVE TBH UROBILINOGEN URINE 1.0 0.2 - 1.0 EU/dL TBH LEUKOCYTE ESTERASE URINE NEGATIVE NEGATIVE TBH URINE MICROSCOPIC INDICATED NO TBH 02/10/2024 8:10 AM EDT 02/10/2024 8:38 AM EDT Narrative [facility] - 02/10/2024 9:17 AM EDT us Mariela Ankur PANCAKE PROFESSIONAL [facility] Final Result Performing Organization Address [facility] Co de Phone Number [facility] TB * [facility]H MICROALB CREAT RATIO RANDOM (02/10/2024 8:10 AM EDT) MICROALBUMIN URINE RANDOM 1.5 <=30.0 mg/dL TBH CREATININE URINE RANDOM 290.88 20.00 - 300.00 mg/dL TBH MICROALBUM CREATININE RATIO UR 5.1 0.0 - 29.9 mg/g TBH Comment: NO MICROALBUMINURIA 0-29 MG/G CLINICAL MICROALBUMINURIA 30-300 MG/G MACROALBUMINURIA >300 MG/G 02/10/2024 8:10 AM EDT 02/10/2024 8:38 AM EDT Narrative CLINISYNC - 02/10/2024 9:09 AM EDT us Mariela Pascual PANCAKE PROFESSIONAL CLIN[facility] Final Result Performing Organization Address [facility] de Phone Number [facility]FT[facility]AR [facility] documented in this encounter Visit Diagnoses Not on filedocumented in this encounter Additional Health Concerns Assessment Noted Time PHQ-9 Depression Total Score: 2 02/03/20 24 10:21 AM EDT documented as of this encounter Care Teams Hardware Sales Assistant Relationship Specialty Start Date End Date Mariela Pascual NP [address] [place] [address] PCP - Cynthia TAVAREZ 09/12/23 Lyle Dominguez MD [address] [place] [address] PCP - General Family Medicine 02/03/24 William Wilson LPN Licensed Practical Nurse Family Medicine 03/11/2403/16/24 documented as of this encounter
--- OUTSIDE RECORDS SUMMARY | 2025-07-28 09:14 | XMS_ITS | CCD ---
Author Organization [facility] Inform ion Partnership [facility] Care Team Providers [employer] Consultant Name Role Phone PHYSICIAN, DEFAULT Admitting Unavailable PHYSICIAN, DEFAULT Attending Unavailable ANNA, SILVIA Primary Care Unavailable Teena Ramos Unavailable HARDY FERNANDEZ Consulting Unavailable HARDY FERNANDEZ Admitting Unavailable ANNA, DR VEGA Primary Care Unavailable HARDY FERNANDEZ Attending Unavailable HARDY FERNANDEZ Admitting Unavailable ANNA, DR VEGA Primary Care Unavailable HARDY FERNANDEZ Attending Unavailable HARDY FERNANDEZ Consulting Unavailable ALEJANDRO QUEZADA Attending Unavailable RADHA HARDING Attending Unavailable TATA SAVAGE Attending TATA Curry Referring Unavailable TATA SAVAGE Referring Unavailable Allergies Allergy Classification Reported Allergen(s) Allergy Type Date of Onset Reaction(s) Facility (1 source) atorvastatin; Translations: [ATORVASTATIN] Drug Allergy 2024 [facility] Repository Medications Current Medications Medication Drug Class(es) Dates [...] Problem Classification Problem Date Documented Date Episodic/Chronic Conduction disorders (8 sources) Encounter for checking and testing of cardiac pacemaker pulse generator [battery]; Translations: [Presence of automatic (implantable) cardiac defibrillator] Onset: 11-02-2024 Chronic Congestive heart failure; nonhypertensive (2 sources) Chronic diastolic (congestive) heart failure; Translations: [Chronic diastolic (congestive) heart failure] Onset: 04-29-2025 Chronic Coronary atherosclerosis and other heart disease (6 sources) Atherosclerotic heart disease of [place] coronary artery without angina pectoris; Translations: [ASHD CROW CA W/O ANGINA PECTORIS] Onset: 03-06-2023 Chronic Hypertension with complications and secondary hypertension (2 sources) Hypertensive heart disease with heart failure; Translations: [Hypertensive heart disease with heart failure] Onset: 04-29-2025 Chronic Other screening for suspected conditions (not mental disorders or infectious disease) (2 sources) Encounter for screening for lipoid disorders; Translations: [Encounter for screening for lipoid disorders] Onset: 04-29-2025 Episodic Unclassified (3 sources) OTHER VENTRICULAR TACHYCARDIA; Translations: [OTHER VENTRICULAR TACHYCARDIA] Onset: 03-07-2023 Unclassified (1 source) Supraventricular tachycardia, unspecified; Translations: [Supraventricular tachycardia, unspecified] Onset: 04-29-2025 Past or Other Problems Problem Classification Problem Date Documented Date Episodic/Chronic Immunizations and screening for infectious disease (1 source) Contact with and (suspected) exposure to other viral communicable diseases Onset: 10-19-2021 Resolved: 10-19-2021 Episodic Unclassified (1 source) OTHER VENTRICULAR TACHYCARDIA; Translations: [OTHER VENTRICULAR TACHYCARDIA] Onset: 03-06-2023 Unclassified (1 source) Supraventricular tachycardia, unspecified; Translations: [Supraventricular tachycardia, unspecified] Onset: 04-29-2025 Results Test Name Value Interpretation Reference Range Facility Office Visiton 04-29-2025 Follow-up visit [id number] Jim Lance 1945 F Date Provider Department Center 04/29/2025 [id number]-ORAGLPRADHA GRUBER Family History Problem Relation Age of Onset Coronary artery disease Other Asthma Other Family Status - Relation Status Age at Other Level of Service:51135 IN OFFICE/OUTPATIENT ESTABLISHED MOD MDM 30 MIN Normal [facility] 29on 2024 29 Addended by: NESTOR ALEMAN on: 2024 12:53 PM Modules accepted: Orders Normal [facility] Office Visiton 2024 Follow-up visit [id number] Jim Lance 1945 F Date Provider Department Center 2024 [facility] Family History Problem Relation Age of Onset Coronary artery disease Other Asthma Other Family Status - Relation Status Age at Other Level of Service:15352 IN OFFICE/OUTPATIENT ESTABLISHED LOW MDM 20 MIN Normal [facility] CBC AUTO DIFFon 03-06-2023 BASO # 0.1 103/ul Normal 0.0-0.1 [facility] Comment on above: Performed By: #### C BC #### [facility] [address] [address] [address] Kym Chaudhry Basophils/100 WBC (Bld) 0.8 % Normal 0.2-2.0 [facility] Comment on above: Performed By: #### C BC #### [facility] [address] [place] [address] Dr. Kym Chaudhry EO # 0.3 103/ul Normal 0.0-0.7 [facility] Comment on above: Performed By: #### C BC #### [facility] [address] [address] [address] Kym Chaudhry Eosinophils/100 WBC (Bld) 4.0 % Normal 0.9-7.0 [facility] Comment on above: Performed By: #### C BC #### [facility] [address] [place] [address] Dr. Kym Chaudhry Erythrocyte distribution width (RBC) [Ratio] 14.5 % Normal 11.0-15.0 [facility] Comment on above: Performed By: #### C BC #### [facility] [address] [place] [address] Dr. Kym Chaudhry Hematocrit (Bld) [Volume fraction] 35.3 % Critically low 36.0-48.0 [facility] Comment on above: Performed By: #### C BC #### [facility] [address] [place] [address] Dr. Kym Chaudhry Hemoglobin (Bld) [Mass/Vol] 11.0 g/dL Critically low 12.0-16.0 [facility] Comment on above: Performed By: #### C BC #### [facility] [address] [place] [address] Dr. Kym Chaudhry IG # 0.02 10e3/ul Normal 0.00-0.03 [facility] Comment on above: Performed By: #### C BC #### [facility] [address] [place] [address] Dr. Kym Chaudhry IG % 0.3 % Normal 0.0-0.5 [facility] Comment on above: Performed By: #### C BC #### [facility] [address] [place] [address] Dr. Kym Chaudhry LYMPH # 1.9 103/ul Normal 1.2-3.8 [facility] Comment on above: Performed By: #### C BC #### [facility] [address] [place] [address] Dr. Kym Chaudhry Lymphocytes/100 WBC (Bld) 26.7 % Normal 20.5-60.0 [facility] Comment on above: Performed By: #### C BC #### [facility] [address] [place] [address] Dr. Kym Chaudhry MANUAL DIFF REQ NO Normal [facility] Comment on above: Performed By: #### C BC #### [facility] [address] [place] [address] Dr. Kym Chaudhry MCH (RBC) [Entitic mass] 25.8 pg Critically low 26.7-34.0 [facility] Comment on above: Performed By: #### C BC #### [facility] [address] [place] [address] Dr. Kym Chaudhry MCHC (RBC) [Mass/Vol] 31.2 g/dL Normal 29.9-35.2 [facility] Comment on above: Performed By: #### C BC #### [facility] [address] [place] [address] Dr. Kym Chaudhry MCV (RBC) [Entitic vol] 82.7 fL Normal 81.0-99.0 [facility] Comment on above: Performed By: #### C BC #### [facility] [address] [place] [address] Dr. Kym Chaudhry MONO # 0.5 103/ul Normal 0.3-0.8 [facility] Comment on above: Performed By: #### C BC #### [facility] [address] [place] [address] Dr. Kym Chaudhry Monocytes/100 WBC (Bld) 6.7 % Normal 1.7-12.0 [facility] Comment on above: Performed By: #### C BC #### [facility] [address] [place] [address] Dr. Kym Chaudhry NEUT # 4.5 103/ul Normal 1.4-6.5 [facility] Comment on above: Performed By: #### C BC #### [facility] [address] [place] [address] Dr. Kym Chaudhry Neutrophils/100 WBC (Bld) 61.5 % Normal 43.0-75.0 [facility] Comment on above: Performed By: #### C BC #### [facility] [address] [place] [address] Dr. Kym Chaudhry Platelet mean volume (Bld) [Entitic vol] 9.9 fL Normal 9.5-13.5 [facility] Comment on above: Performed By: #### C BC #### [facility] [address] [place] [address] Dr. Kym Chaudhry PLT 237 103/ul Normal 150-450 [facility] Comment on above: Performed By: #### C BC #### [facility] [address] [place] [address] Dr. Kym Chaudhry RBC 4.27 106/ul Normal 4.20-5.40 [facility] Comment on above: Performed By: #### C BC #### [facility] [address] [place] [address] Dr. Kym Chaudhry WBC 7.3 103/ul Normal 4.0-11.0 [facility] Comment on above: Performed By: #### C BC #### [facility] [address] [place] [address] Dr. Kym Chaudhry ECHOCARDIO M/2D COMPLETEon 0 03-06-2023 ECHOCARDIO M/2D COMPLETE Patient: JIM LANCE Exam Date: 03/06/2023 : 1945 Gender:F Ordering : DR HARDY FERNANDEZ M.D. Admission #: [id number] Family : Order #: [id number] CLICK HERE TO VIEW EXAM ECHOCARDIOGRAM REPORT [...] Smalls M.D. on 03/09/2023 at 15:21 Normal [facility] LIPID PROFILEon 03-06-2023 CHOL-HDL RATIO NORM SEE BELOW Normal [facility] Comment on above: Result Comment: 3.3 - 4.4 LOW RISK 4.4 - 7.1 AVERAGE RISK 7.1 - 11.0 MODERATE RISK >11.0 HIGH RISK Performed By: #### C MP, LIPID #### [facility] [address] [place] [address] Dr. Kym Chaudhry Cholesterol [Mass/Vol] 145 mg/dL Normal <=200 [facility] Comment on above: Performed By: #### C MP, LIPID #### [facility] [address] [address] [address] Kym Chaudhry Cholesterol in HDL [Mass/Vol] 46 mg/dL Normal 40-60 [facility] Comment on above: Performed By: #### C MP, LIPID #### [facility] [address] [address] [address] Kym Chaudhry Cholesterol in LDL [Mass/Vol] 73.8 mg/dL Normal [facility] Comment on above: Performed By: #### C MP, LIPID #### [facility] [address] [address] [address] Kym Chaudhry Cholesterol.total /Cholesterol in HDL [Mass ratio] 3.2 {ratio} Normal [facility] Comment on above: Performed By: #### C MP, LIPID #### [facility] [address] [address] [address] Kym Chaudhry HDL NORMAL > or = 60 mg/dl - LO W CARDIOVASCULAR RISK <40 mg/dl - HIGH CARDIOVASCULAR RISK Normal [facility] Comment on above: Performed By: #### C MP, LIPID #### [facility] [address] [address] [address] Kym Chaudhry LDL CALC NORMAL SEE BELOW Normal [facility] Comment on above: Result Comment: <100 mg/dl OPTIMAL 100 - 129 mg/dl NEAR OR ABOVE OPTIMAL 130 - 159 mg/dl BORDERLINE HIGH 160 - 189 mg/dl HIGH >190 mg/dl VERY HIGH Performed By: #### C MP, LIPID #### [facility] [address] [address] [address] Kym Chaudhry Triglyceride [Mass/Vol] 126 mg/dL Normal <=150 [facility] Comment on above: Performed By: #### C MP, LIPID #### [facility] [address] [address] [address] Kym Chaudhry VLDL CALC 25.2 mg/dL Normal [facility] Comment on above: Performed By: #### C MP, LIPID #### [facility] [address] [place] [address] Dr. Kym Chaudhry PROF 14(COMP METB)on 023 Albumin [Mass/Vol] 3.1 g/dL Critically low 3.4-5.0 [facility] Comment on above: Performed By: #### C MP, LIPID #### [facility] [address] [address] [address] Kym Chaudhry Albumin/Globulin [Mass ratio] 0.7 {ratio} Normal [facility] Comment on above: Performed By: #### C MP, LIPID #### [facility] [address] [place] [address] Dr. Kym Chaudhry ALP [Catalytic activity/Vol] 125 U/L Critically high 46-116 [facility] Comment on above: Performed By: #### C MP, LIPID #### [facility] [address] [address] [address] Kym Chaudhry ALT [Catalytic activity/Vol] 24 U/L Normal 14-59 [facility] Comment on above: Performed By: #### C MP, LIPID #### [facility] [address] [address] [address] Kym Chaudhry Anion gap [Moles/Vol] 11.6 mmol/L Normal [facility] Comment on above: Performed By: #### C MP, LIPID #### [facility] [address] [address] [address] Kym Chaudhry AST [Catalytic activity/Vol] 17 U/L Normal 15-37 [facility] Comment on above: Performed By: #### C MP, LIPID #### [facility] [address] [address] [address] Kym Chaudhry Bilirubin [Mass/Vol] 0.5 mg/dL Normal 0.2-1.0 [facility] Comment on above: Performed By: #### C MP, LIPID #### [facility] [address] [address] [address] Kym Chaudhry Calcium [Mass/Vol] 8.5 mg/dL Normal 8.5-10.1 [facility] Comment on above: Performed By: #### C MP, LIPID #### [facility] [address] [place] [address] Dr. Kym Chaudhry Chloride [Moles/Vol] 109 mmol/L Critically high 98-107 [facility] Comment on above: Performed By: #### C MP, LIPID #### [facility] [address] [place] [address] Dr. Kym Chaudhry CO2 [Moles/Vol] 27.5 mmol/L Normal 21.0-32.0 [facility] Comment on above: Performed By: #### C MP, LIPID #### [facility] [address] [place] [address] Dr. Kym Chaudhry Creatinine [Mass/Vol] 0.91 mg/dL Normal 0.55-1.02 [facility] Comment on above: Performed By: #### C MP, LIPID #### [facility] [address] [place] [address] Dr. Kym Chaudhry EGFR-AF [place] >60 Normal >=60 [facility] Comment on above: Performed By: #### C MP, LIPID #### [facility] [address] [place] [address] Dr. Kym Chaudhry EGFR-NON AF [place] 60 mL/min/1.73m2 Normal >=60 [facility] Comment on above: Performed By: #### C MP, LIPID #### [facility] [address] [address] [address] Kym Chaudhry Globulin (S) [Mass/Vol] 4.2 g/dL Normal [facility] Comment on above: Performed By: #### C MP, LIPID #### [facility] [address] [address] [address] Kym Chaudhry Glucose [Mass/Vol] 99 mg/dL Normal 74-106 [facility] Comment on above: Performed By: #### C MP, LIPID #### [facility] [address] [address] [address] Kym Chaudhry Potassium [Moles/Vol] 4.1 mmol/L Normal 3.5-5.1 [facility] Comment on above: Performed By: #### C MP, LIPID #### [facility] [address] [address] [address] Kym Chaudhry Protein [Mass/Vol] 7.3 g/dL Normal 6.4-8.2 [facility] Comment on above: Performed By: #### C MP, LIPID #### [facility] [address] [address] [address] Kym Chaudhry Sodium [Moles/Vol] 144 mmol/L Normal 136-145 [facility] Comment on above: Performed By: #### C MP, LIPID #### [facility] [address] [address] [address] Kym Chaudhry Urea nitrogen [Mass/Vol] 19.0 mg/dL Critically high 7.0-18.0 [facility] Comment on above: Performed By: #### C MP, LIPID #### [facility] [address] [address] [address] Kym Chaudhry Urea nitrogen/Creatini ne [Mass ratio] 20.9 mg/mg Normal [facility] Comment on above: Performed By: #### C MP, LIPID #### [facility] [address] [place] [address] Dr. Kym Chaudhry COVID Quick Testingon 2021 Result Negative [facility] Other Vital Signs Date Time Vital Sign Value Performing Clinician Facility 10-19-2021 17:00-0500 Body height 162.56 cm Teena Ginty Other [facility] Other 10-19-2021 17:00-0500 Body mass index (BMI) [Ratio] 30.04 kg/m2 Teena Ginty Other [facility] Other 10-19-2021 17:00-0500 Body temperature 97.3 [degF] Teena Ginty Other [facility] Other 10-19-2021 17:00-0500 Body weight 79.38 kg Teena Ginty Other [facility] Other 10-19-2021 17:00-0500 Respiratory rate 18 /min Teena Ginty Other [facility] Other 10-19-2021 17:00-0500 SaO2% (BldA) [Mass fraction] 98 % Teena Ginty Other [facility] Other Encounters Encounter Date Encounter Type Care Provider Facility Start: 07-05-2025 End: 07-05-2025 ambulatory [facility] Start: 04-29-2025 End: 04-29-2025 ambulatory RADHA HARDING [facility] Start: 2024 End: 2024 ambulatory [facility] Start: 11-02-2024 End: 11-02-2024 ambulatory [facility] Start: 02-03-2024 End: 02-03-2024 ambulatory ALEJANDRO QUEZADA Not Available Start: 03-06-2023 End: 03-07-2023 [facility]: Start: 03-06-2023 End: 03-07-2023 [facility] Start: 10-19-2021 End: 10-19-2021 ambulatory Teena Ramos Other [facility] Other Start: 10-19-2021 Office outpatient visit 15 minutes Teena Ramos [facility] Start: 12-11-2018 End: 12-12-2018 Patient encounter procedure DEFAULT PHYSICIAN Facility:[facility] Payers Date Payer Category Payer Medicare [id number] 2. [id number] 1945 Unknown [id number] [id number] 1945 Unknown [id number] [id number] [id number] 1945 Unknown [id number] [id number] [id number] 1945 Unknown [id number] [id number] [id number] Unknown Social History Date Type Detail Facility Sex Assigned At [facility] Other Progress note 04-29-2025 Note Date & Type Note Facility 04-29-2025 Note SUBJECTIVE Reason for Visit: Jim Lance is a 79 y.o. year old female patient being seen for 6-month follow-up visit. HPI: Jim Lance is a 79 y.o. 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 Tejada), single-vessel coronary artery disease (cardiac catheterization 2007) and hypertension. Cardiac catheterization in 2007 showed single-vessel CAD of the diagonal branch with an EF of 15%. Cardiac cath 03/07/2015: mild single vessel CAD Her systolic function improved over time, with a normal EF on echocardiography in February 2023. Prior ICD interrogation revealed nonsustained VT per cardiology, though the most recent in 2022 showed SVT. No recent device checks were available. She was on lisinopril 20 mg and Toprol-XL 150 mg daily, watched her calories, and remained active with banquet food server. She reported lightheadedness and near-syncope on July 05, 2023, occurring only after a device check. During ICD interrogation on June 25, 2021, four NSVT episodes were noted, the longest lasting 3 seconds at 185 bpm on May 18, 2021, along with several SVTs at 150-160 bpm. A stress test at that time showed no ischemia, and she was managed medically. 04/29/2025 office visit: Patient was seen and evaluated in the office today. She denies chest pain, palpitations, shortness of breath, or lower extremity edema. However, she reports worsening fatigue compared to the prior year, noting that routine activities such as sweeping indoors now leave her noticeably more tired. She also endorses intermittent itching in her lower extremities and ankles, which has been occurring over the past few years. She describes the sensation as feeling 'deep inside my veins.' 2024 office visit (Dr. Savage): Pt doing well. No recent labs/imaging, but had device interrogation last week which showed one event on 06/22/24 which was non sustained.No AF seen. . She is not taking atorvastatin due to myalgias. Denies chest pain, SOB, palpitations, and lightheadedness/syncope. 05/25/24: Pt is here for six month follow up. Patent denies sob, palpitations. SVT episode on 12/18/23 at 10:55am. No issues to report Medical History[1] Surgical History[2] Problem List[3] family history includes Asthma in an other family member; Coronary artery disease in an other family member. Social History[4] OBJECTIVE Visit Vitals Smoking Status Never Physical Exam Constitutional: General Appearance: well-developed, appears stated age. Level of Distress: no acute distress. Neck: Jugular Veins: normal jugular venous pressure. Lungs: Auscultation: no rales or rhonchi and normal breath sounds. Cardiovascular: Rate And Rhythm: regular Heart Sounds: normal S1 and s2; Systolic Murmur: not heard. Diastolic Murmur: not heard. Extremities: no edema Peripheral Pulses: Pulses: full and equal in all extremities except if noted. Abdomen: Inspection and Palpation: non distended or tender and soft. Musculoskeletal: Inspection: no joint tenderness or swelling. Neurologic: Gait: normal gait. Psychiatric: Mental Status: alert and normal affect. Skin: Inspection and Palpation: warm and dry. Allergies: Allergies[5] Outpatient Medications: Current Outpatient Medications Medication Instructions aspirin 81 mg EC tablet Take 1 tablet every day by oral route. atorvastatin (LIPITOR) 40 mg, oral, Nightly lisinopril 20 mg, oral, Every morning metoprolol succinate XL (Toprol-XL) 100 mg 24 hr tablet TAKE 1 TABLET IN THE MORNING . DO NOT CRUSH OR CHEW metoprolol succinate XL (TOPROL-XL) 50 mg, oral, Once Daily, Take in addition to the 100 mg tablet for a total of 150 mg daily. Recent Labs: No visits with results within 2 Month(s) from this visit. Latest known visit with results is: No results found for any previous visit. I have personally reviewed and anaylzed the following laboratory results above. These findings have been analyzed in the context of the patient's clinical presentation. Cardiovascular Diagnostic Studies: TTE: Conclusion: EF 55 to 60%. No significant wall motion bilaterally, moderately increased left ventricular wall thickness, grade 1 diastolic dysfunction, by atrial enlargement, RV size normal and systolic function, RVSP 35 mmHg, no significant valvular abnormalities. Echocardiogram 10/14/2018: 1. Severely reduced left ventricular systolic function. 2. Mild mitral and tricuspid regurgitation. 3. Normal right sided pressures. 4. Mild diastolic dysfunction. 5. Small circumferential pericardial effusion. Cardiac cath 03/07/2015: mild single vessel CAD 12 Lead ECG: No results found for this or any previous visit (from the past 4464 hours). Cardiac device check 11/02/2024: 04/20/23 Episode appears to be SVT: I have personally reviewed and kathy (more content not included)... [facility] Progress note 2024 Note Date & Type Note Facility 2024 Note [place] Electrophysiology Consult Note Reason for visit: 6 mo follow up. 11/10/24 Pt doing well. No recent labs/imaging, but had device interrogation last week which showed one event on 06/22/24 which was non sustained.No AF seen. . She is not taking atorvastatin due to myalgias. Denies chest pain, SOB, palpitations, and lightheadedness/syncope. 05/25/24 Pt is here for six month follow up. Patent denies sob, palpitations. SVT episode on 12/18/23 at 10:55am. No issues to report 11/28/23 HPI: Jim Lance is a 79 y.o. 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 it was initially implanted at [facility] and subsequently underwent a generator change [...] Abnormal ECG Arrhythmia CHF (congestive heart failure) (CMS/HCC) Coronary artery disease Hypertension Nonischemic congestive cardiomyopathy (CMS/HCC) NSVT (nonsustained ventricular tachycardia) (CMS/HCC) Primary cardiomyopathy (CMS/HCC) SVT (supraventricular tachycardia) (CMS/HCC) PSH: Past Surgical History: Procedure Laterality Date APPENDECTOMY CARDIAC CATHETERIZATION 10/16/2018 CARDIAC CATHETERIZATION 07/04/2011 INSERT / REPLACE / REMOVE PACEMAKER SH: Social Determinants of Health Tobacco Use: Low Risk (02/03/2024) Received from [facility] Patient History Smoking Tobacco Use: Never Smokeless Tobacco Use: Never Passive Exposure: Not on file Alcohol Use: Not At Risk (02/03/2024) Received from [facility] AUDIT-C Frequency of Alcohol Consumption: Never Average Number of Drinks: Patient does not drink Frequency of Binge Drinking: Never Financial Resource Strain: Low Risk (02/03/2024) Received from [facility] Overall Financial Resource Strain (CARDIA) Difficulty of Paying Living Expenses: Not hard at all Food Insecurity: No Food Insecurity (02/03/2024) Received from [facility] Hunger Vital Sign Worried About Running Out of Food in the Last Year: Never true Ran Out of Food in the Last Year: Never true Transportation Needs: No Transportation Needs (02/03/2024) Received from [facility] PRAPARE - Transportation Lack of Transportation (Medical): No Lack of Transportation (Non-Medical): No Physical Activity: Inactive (02/03/2024) Received from [facility] Exercise Vital Sign Days of Exercise per Week: 0 days Minutes of Exercise per Session: 0 min Stress: No Stress Concern Present (02/03/2024) Received from [facility] - Occupational Stress Questionnaire Feeling of Stress : Not at all Social Connections: Moderately Integrated (02/03/2024) Received from [facility] Social Connection and Isolation Panel [NHANES] Frequency of Communication with Friends and Family: Twice a week Frequency of Social Gatherings with Friends and Family: Twice a week Attends Restorationist Services: 1 to 4 times per year Active Member of Clubs or Organizations: No Attends Club or Organization Meetings: Never Marital Status: Intimate Partner Violence: Not At Risk (02/03/2024) Received from [facility] Humiliation, Afraid, Rape, and Kick questionnaire Fear of Current or Ex-Partner: No Emotionally Abused: No Physically Abused: No Sexually Abused: No Depression: Not at risk (02/03/2024) Received from [facility] PHQ-2 Patient Health Questionnaire-2 Score: 0 Housing Stability: Low Risk (02/03/2024) Received from [facility] H (more content not included)... [facility] Evaluation note 10-19-2021 Note Date & [...] Patient care instructions given in writting by [facility] Care At Home document [employer] Other History general Narrative - Reported Note Date & Type Note Facility History general Narrative - Reported Type Medical History Congestive heart failure Surgical History appendectomy Surgical History ovarian cyst removal Surgical History pacemaker Surgical History cholecystectomy [employer] Other Summary Purpose Family History No Family History Records FoundNo Family History Records FoundNo Family History Records FoundNo Family History Records Found Advance Directives No Advanced Directives Records FoundNo Advanced Directives Records FoundNo Advanced Directives Records FoundNo Advanced Directives Records Found Additional Source Comments INFORMATION SOURCE (unrecogn ized section and content) DATE CREATED AUTHOR 12/13/2018 [facility] DATE CREATED AUTHOR AUTHOR'S ORGANIZ ATION 03/21/2023 [facility] DATE CREATED AUTHOR AUTHOR'S ORGANIZ ATION 02/04/2024 [facility] DATE CREATED AUTHOR AUTHOR'S FAUSTO JAY 07/06/2025 [facility] REASON FOR VISIT (unrecogniz ed section and [...] BE BASED ON THE PRIMARY CLINICAL RECORDS. [employer] [facility]. provides no warranty or guarantee of the accuracy or completeness of information in this document.
[2025-07-28 09:21] LABS: Hematocrit 35.8 % (36.0-48.0); Hemoglobin 11.5 g/dL (12.0-16.0); Immature Granulocytes Abs Auto 0.02 10^3/uL (0.00-0.03); Immature Granulocytes Pct Auto 0.3 % (0.0-0.5); Lymphocytes Absolute Auto 1.7 10^3/uL (1.2-3.8); Mean Corpuscular HGB Conc 32.1 g/dL (29.9-35.2); Mean Corpuscular Hemoglobin 27.2 pg (26.7-34.0); Mean Corpuscular Volume 84.6 fL (81.0-99.0); Platelet Count 227 10^3/uL (150-450); Red Blood Count 4.23 10^6/uL (4.20-5.40); White Blood Count 7.2 10^3/uL (4.0-11.0)
[2025-07-28 10:13] LABS: Alanine Aminotransferase 23 U/L (14-59); Albumin Globulin Ratio 0.8; Albumin Level 3.1 g/dL (3.4-5.0); Alkaline Phosphatase 107 U/L (46-116); Anion Gap 13.1; Aspartate Amino Transferase 16 U/L (15-37); Blood Urea Nitrogen 19.0 mg/dL (7.0-18.0); Calcium 8.5 mg/dL (8.5-10.1); Carbon Dioxide 27.0 mmol/L (21.0-32.0); Chloride 109 mmol/L (98-107); Cholesterol 214 mg/dL (<=200); Estimated GFR (African America >60 (>=60 mL/min/1.73m^2); Estimated GFR (Non-African Ame >60 (>=60 mL/min/1.73m^2); Globulin 3.9 g/dL; Glucose 115 mg/dL (74-106); HDL Cholesterol 46 mg/dL (40-60); Potassium 4.1 mmol/L (3.5-5.1); Sodium 145 mmol/L (136-145); Total Protein 7.0 g/dL (6.4-8.2); Triglycerides 178 mg/dL (<=150); VLDL CHOLESTEROL 35.6 mg/dL
== END 2025-07-28 09:02 | disposition home or self-care (01) ==
PROVIDERS: PCP Nurse Practitioner
DX: I25.10 Atherosclerotic heart disease of native coronary artery without angina pectoris (principal); Z13.220 Encounter for screening for lipoid disorders; I50.32 Chronic diastolic (congestive) heart failure
CPT/HCPCS: 36415; 80053; 80061; 85025